=== PATIENT | male | born 1955 | race Caucasian/White ===

== ENCOUNTER → 2021-02-25 09:48 | Outpatient (BNVA) | payer MEDICARE, SELFPAY | PROVIDERS: Family Provider Physician Assistant Medical; PCP Nurse Practitioner Family; Visit Provider Internal Medicine Cardiovascular Disease | DX: I50.32 Chronic diastolic (congestive) heart failure (principal); E78.00 Pure hypercholesterolemia, unspecified | CPT/HCPCS: 80048 ==

== ENCOUNTER 2021-04-05 13:58 | Outpatient (CLI) | payer MEDICARE, SELFPAY ==
--- NOTE | 2021-04-05 14:15 | USCV_ITS ---
Ryan Nicholas Age: 65 Gender: M : 1955 Exam Date: 04/05/2021 14:19 Ordering Phys: Marcela Whitmore Technologist: MARGARET BARLOW [place] [facility] [place]: CHEST PAIN BP: 116 / 69 HR: 56 Rhythm: Sinus Technical Quality: Adequate MEASUREMENTS (Male / Female) Normal Values 2D ECHO LV Diastolic Diameter PLAX 4.3 cm 4.2 - 5.9 / 3.9 - 5.3 cm LV Systolic Diameter PLAX 2.7 cm LV Chamber Size 3.5 cm IVS Diastolic Thickness 2.0 cm 0.6 - 1.0 / 0.6 - 0.9 cm IVS Systolic Thickness 2.3 cm LVPW Diastolic Thickness 2.4 cm 0.6 - 1.0 / 0.6 - 0.9 cm LVPW Systolic Thickness 2.3 cm RV Chamber Size 3.9 cm LVOT Diameter 2.1 cm LV Ejection Fraction 2D Teich 68.4 % LV Ejection Fraction MOD 2C 77.5 % LV Ejection Fraction 2C AL 79.3 % LA Diameter 4.1 cm LA Width 3.3 cm LA Height 5.1 cm RA Width 4.3 cm RA Height 4.8 cm Aorta at Sinotubular Diameter 3.3 cm M-MODE LV Diastolic Diameter MM 6.5 cm 4.2 - 5.9 / 3.9 - 5.3 cm LV Systolic Diameter MM 4.6 cm LV Ejection Fraction MM Teich 54.9 % IVS Diastolic Thickness MM 1.5 cm 0.6 - 1.0 / 0.6 - 0.9 cm IVS Systolic Thickness MM 1.8 cm LVPW Diastolic Thickness MM 1.8 cm 0.6 - 1.0 / 0.6 - 0.9 cm LVPW Systolic Thickness MM 1.9 cm RV Diastolic Diameter MM 0.9 cm Aortic Annulus Diameter 4.7 cm LA Ao Ratio MM 1.0 MV E Point Septal Separation 0.9 cm DOPPLER AV Peak Velocity 100.0 cm/s LVOT Peak Velocity 60.0 cm/s AV Area Cont Eq vti 1.8 cm squared AV Area Cont Eq pk 2.1 cm squared MV Area PHT 3.6 cm squared Mitral E to A Ratio 1.0 MV E' Velocity 51.5 cm/s Mitral E to MV E' Ratio 13.3 Mitral E to LV E' Lateral Ratio 9.3 Mitral E to LV E' Septal Ratio 23.8 TR Peak Velocity 153.7 cm/s TR Peak Gradient 9.4 mmHg TR Mean Velocity 105.6 cm/s TR Mean Gradient 5.2 mmHg TR Velocity Time Integral 42.8 cm TV Peak E Velocity 57.0 cm/s Right Atrial Pressure 3.0 mmHg Pulmonary Artery Systolic Pressu 12.4 mmHg PV Peak Velocity 56.0 cm/s RV Acceleration Time 0.1 s RV Ejection Time 0.3 s RV AcT/ET 0.2 FINDINGS Left Ventricle Normal left ventricular cavity size. Normal left ventricular systolic function. Left ventricular ejection fraction is estimated at 55 %. Grade I/IV diastolic dysfunction (abnormal relaxation filling pattern), normal to mildly elevated filling pressures. Right Ventricle The right ventricle is normal in size and function. Right Atrium The right atrium is normal in size. Left Atrium The left atrium is normal in size. Mitral Valve Structurally normal mitral valve without significant stenosis or prolapse. There is no mitral regurgitation. Aortic Valve Structurally normal aortic valve without significant sclerosis or stenosis. There is no aortic regurgitation. Tricuspid Valve Structurally normal tricuspid valve without significant stenosis or regurgitation. Pulmonary artery systolic pressure is normal. Pulmonic Valve Structurally normal pulmonic valve without significant stenosis. There is no pulmonic regurgitation. Pericardium Normal pericardium without effusion. Aorta Normal ascending aorta dimension. CONCLUSIONS 1-Normal left ventricular cavity size. Normal left ventricular systolic function. Left ventricular ejection fraction is estimated at 55 %. Grade I/IV diastolic dysfunction (abnormal relaxation filling pattern), normal to mildly elevated filling pressures. 2-There is no pericardial effusion. 3-No significant valve abnormalities. 4-Pulmonary artery systolic pressure is within normal limits. 5-Due to poor quality study cannot compared with prior exam. Aarti Faria MD (Electronically Signed) Final Date: 05 April 2021 21:03 S
== END 2021-04-05 13:59 | disposition home or self-care (01) ==
LOC: RAD 14:04
PROVIDERS: PCP Nurse Practitioner Family; Visit Provider Nurse Practitioner Family
DX: I50.32 Chronic diastolic (congestive) heart failure (principal); R07.9 Chest pain, unspecified
CPT/HCPCS: 80048; 83880; 93306

== ENCOUNTER → 2022-11-23 12:39 | Outpatient (BNVA) | payer MEDICARE, SELFPAY | PROVIDERS: Visit Provider Internal Medicine | DX: I48.91 Unspecified atrial fibrillation (principal); I50.32 Chronic diastolic (congestive) heart failure; I25.10 Atherosclerotic heart disease of native coronary artery without angina pectoris; E78.00 Pure hypercholesterolemia, unspecified; Z87.891 Personal history of nicotine dependence; Z95.1 Presence of aortocoronary bypass graft | CPT/HCPCS: 99213 ==

== ENCOUNTER → 2023-08-23 12:27 | Outpatient (BNVA) | payer MEDICARE, SELFPAY | PROVIDERS: Visit Provider Internal Medicine | DX: I48.91 Unspecified atrial fibrillation (principal); I25.10 Atherosclerotic heart disease of native coronary artery without angina pectoris; I50.32 Chronic diastolic (congestive) heart failure; E78.00 Pure hypercholesterolemia, unspecified; Z87.891 Personal history of nicotine dependence; Z95.1 Presence of aortocoronary bypass graft | CPT/HCPCS: 99214 ==

== ENCOUNTER → 2023-11-28 08:51 | Outpatient (BNVA) | payer MEDICARE, SELFPAY | PROVIDERS: Visit Provider Nurse Practitioner Family | DX: L57.0 Actinic keratosis (principal); L40.0 Psoriasis vulgaris; D22.5 Melanocytic nevi of trunk; L81.4 Other melanin hyperpigmentation; L82.1 Other seborrheic keratosis | CPT/HCPCS: 17000; 99204 ==

== ENCOUNTER 2023-12-04 07:38 | Outpatient (CLI) | payer MEDICARE, SELFPAY ==
--- NOTE | 2023-12-04 08:00 | USCV_ITS ---
Ryan Nicholas Age: 68 Gender: M : 1955 Exam Date: 12/04/2023 08:05 Ordering Phys: Natasha Nesbitt Technologist: Jennifer Sin Exam Location: [facility] – [place] Indication: CABGX2 , SOB and EDEMA BP: 104 / 68 HR: 0 Rhythm: Other Technical Quality: Adequate MEASUREMENTS (Male / Female) Normal Values 2D ECHO LV Diastolic Diameter PLAX 5.9 cm 4.2 - 5.9 / 3.9 - 5.3 cm IVS Diastolic Thickness 1.3 cm 0.6 - 1.0 / 0.6 - 0.9 cm IVS Systolic Thickness 1.5 cm LVPW Diastolic Thickness 1.7 cm 0.6 - 1.0 / 0.6 - 0.9 cm LVPW Systolic Thickness 2.1 cm LVOT Diameter 1.2 cm LV Ejection Fraction 2D Teich 21.1 % LV Ejection Fraction MOD 2C 23.1 % Aorta at Sinotubular Diameter 3.3 cm IVC Diameter 2.6 cm DOPPLER AV Peak Velocity 131.0 cm/s LVOT Peak Velocity 100.0 cm/s AV Area Cont Eq vti 0.9 cm squared AV Area Cont Eq pk 0.8 cm squared MV Area PHT 2.3 cm squared Mitral E to A Ratio 9.7 TV Peak Velocity 229.7 cm/s TR Peak Velocity 233.5 cm/s TR Peak Gradient 21.8 mmHg Right Atrial Pressure 5.0 mmHg Pulmonary Artery Systolic Pressu 26.8 mmHg PV Peak Velocity 61.0 cm/s FINDINGS Left Ventricle Technically limited quality echocardiogram. Left ventricle is dilated. Grossly LV systolic function is moderate to severely reduced. Regional wall motion abnormalities cannot accurately be assessed because of limited visualization. Right Ventricle Normla in size. Moderately hypokinetic Right Atrium Normal in size Left Atrium Normal in size Mitral Valve Mild mitral annular calcification seen. Mild mitral regurgitation. Aortic Valve Aortic valve is thickened.No significant stenosis or regurgitation Tricuspid Valve Mild tricuspid regurgitation. Pulmonary artery systolic pressure is normal. Pulmonic Valve Not well visualized Pericardium Normal Aorta Normal in size IVC Appears to be dilated. CONCLUSIONS Technically limited quality echocardiogram because of poor ultrasonic windows. LV is dilated. Grossly LV systolic function is moderate to severely reduced. Wall motion abnormalities cannot accurately be assessed because of limited visualization. Mild mitral regurgitation Mild tricuspid regurgitation IVC appears dilated. Accurate comparison with prior echo is not possible because of limited visualization on current study. Will recommend assessing LV systolic function with limited echocardiogram with contrast. Blake Landin MD (Electronically Signed) Final Date: 09 December 2023 12:02 S
== END 2023-12-04 07:39 | disposition home or self-care (01) ==
LOC: RAD 07:39
PROVIDERS: Visit Provider Registered Nurse
DX: R63.5 Abnormal weight gain (principal); I25.10 Atherosclerotic heart disease of native coronary artery without angina pectoris; Z95.1 Presence of aortocoronary bypass graft; I08.1 Rheumatic disorders of both mitral and tricuspid valves; R79.89 Other specified abnormal findings of blood chemistry; R60.0 Localized edema; R06.02 Shortness of breath
CPT/HCPCS: 93306

== ENCOUNTER 2024-01-02 07:21 | Outpatient (CLI) | payer MEDICARE, SELFPAY ==
--- NOTE | 2024-01-02 07:27 | USCV_ITS ---
Ryan Nicholas Age: 68 Gender: M : 1955 Exam Date: 01/02/2024 07:43 Ordering Phys: Natasha Nesbitt Technologist: FRANCISCO Exam Location: [facility] [place] Indication: LIMITED ONLY FOR EF BP: 104 / 68 HR: 75 Rhythm: Sinus Technical Quality: Adequate MEASUREMENTS (Male / Female) Normal Values 2D ECHO LV Diastolic Diameter PLAX 5.4 cm 4.2 - 5.9 / 3.9 - 5.3 cm IVS Diastolic Thickness 1.0 cm 0.6 - 1.0 / 0.6 - 0.9 cm IVS Systolic Thickness 1.6 cm LVPW Diastolic Thickness 1.6 cm 0.6 - 1.0 / 0.6 - 0.9 cm LVPW Systolic Thickness 2.6 cm LVOT Diameter 2.0 cm LV Ejection Fraction 2D Teich 41.1 % LV Ejection Fraction MOD 2C 29.8 % LV Ejection Fraction 2C AL 30.3 % LA Diameter 5.3 cm RA Systolic Volume 4C AL 43.0 ml RA Systolic Volume 4C MOD 40.6 ml Aorta at Sinotubular Diameter 2.7 cm M-MODE LA Ao Ratio MM 1.1 AV Cusp Separation MM 1.7 cm FINDINGS Left Ventricle Right Ventricle Right Atrium Left Atrium Mitral Valve Aortic Valve Tricuspid Valve Pulmonic Valve Pericardium Aorta IVC CONCLUSIONS This is a limited echocardiogram performed to assess LV systolic function. LV systolic function is severely reduced with EF of 25-30% Severe global hypokinesis. Blake Landin MD (Electronically Signed) Final Date: 14 January 2024 11:45 S
[2024-01-02] MEDS: perflutren protein-a microsphr 0.22 mg/mL SDV 3 mL IV (08:18)
== END 2024-01-02 07:22 | disposition home or self-care (01) ==
LOC: RAD 07:22
PROVIDERS: Visit Provider Registered Nurse
DX: R93.1 Abnormal findings on diagnostic imaging of heart and coronary circulation (principal); I51.89 Other ill-defined heart diseases; R06.02 Shortness of breath; Z95.1 Presence of aortocoronary bypass graft; R79.89 Other specified abnormal findings of blood chemistry; I25.10 Atherosclerotic heart disease of native coronary artery without angina pectoris
CPT/HCPCS: C8924; Q9956

== ENCOUNTER → 2024-02-26 10:18 | Outpatient (BNVA) | payer MEDICARE, SELFPAY | PROVIDERS: Visit Provider Nurse Practitioner Family | DX: L40.0 Psoriasis vulgaris (principal); D22.39 Melanocytic nevi of other parts of face; I87.2 Venous insufficiency (chronic) (peripheral); L57.0 Actinic keratosis; D22.5 Melanocytic nevi of trunk; R60.1 Generalized edema | CPT/HCPCS: 17000; 99214 ==

== ENCOUNTER → 2024-05-22 14:43 | Outpatient (BNVA) | payer MEDICARE, SELFPAY | PROVIDERS: PCP Registered Nurse; Visit Provider Internal Medicine | DX: I48.91 Unspecified atrial fibrillation (principal); I25.10 Atherosclerotic heart disease of native coronary artery without angina pectoris; Z95.1 Presence of aortocoronary bypass graft; I50.32 Chronic diastolic (congestive) heart failure; E78.00 Pure hypercholesterolemia, unspecified; Z87.891 Personal history of nicotine dependence | CPT/HCPCS: 99214 ==

== ENCOUNTER → 2024-05-28 15:07 | Outpatient (BNVA) | payer MEDICARE, SELFPAY | PROVIDERS: PCP Registered Nurse; Visit Provider Nurse Practitioner Family | DX: L40.0 Psoriasis vulgaris (principal); Z79.899 Other long term (current) drug therapy; I87.2 Venous insufficiency (chronic) (peripheral) | CPT/HCPCS: 99214 ==

== ENCOUNTER → 2024-09-30 08:47 | Outpatient (BNVA) | payer MEDICARE, SELFPAY | PROVIDERS: PCP Registered Nurse; Visit Provider Nurse Practitioner Family | DX: L40.0 Psoriasis vulgaris (principal); Z79.899 Other long term (current) drug therapy; I87.2 Venous insufficiency (chronic) (peripheral); D69.2 Other nonthrombocytopenic purpura; L57.0 Actinic keratosis | CPT/HCPCS: 17000; 99214 ==

== ENCOUNTER 2025-04-15 14:57 | Outpatient (CLI) | payer MEDICARE, SELFPAY ==
--- NOTE | 2025-04-15 15:10 | XRR_ITS ---
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 TECHNIQUE: Imaging protocol: Radiologic exam of the left fingers. Views: Minimum 2 views. COMPARISON: No relevant prior studies available. FINDINGS: Bones/joints: No acute fracture or dislocation. Soft tissues: Overlying mild soft tissue swelling and irregularity of the nail bed. Correlate with physical examination. XR/XR finger LT min 2V [id number] IMPRESSION: As above
== END 2025-04-15 14:58 | disposition home or self-care (01) ==
LOC: RAD 15:00
PROVIDERS: PCP Registered Nurse; Visit Provider Nurse Practitioner Family
DX: S67.02XA Crushing injury of left thumb, initial encounter (principal); S60.012A Contusion of left thumb without damage to nail, initial encounter; X58.XXXA Exposure to other specified factors, initial encounter; I89.0 Lymphedema, not elsewhere classified; L98.491 Non-pressure chronic ulcer of skin of other sites limited to breakdown of skin; L40.0 Psoriasis vulgaris; Z79.899 Other long term (current) drug therapy
CPT/HCPCS: 10140; 73140; 99214

== ENCOUNTER 2025-10-10 13:49 | Inpatient (IN) | payer MEDICARE, SELFPAY ==
--- OUTSIDE RECORDS SUMMARY | 2025-10-08 08:20 | XMS_ITS | Encounter Summary ---
Author Organization [facility] Address [address] [place] [address] Care Team Providers Care Transportation Solutions Manager Name Role Phone Bernardino Gonzalez MD Primary Care Provider [phone] Reason for Visit * Reason Comments Hospital Follow Up [facility] 10/08 Encounter Details Date Type Department Care Team (Late st Contact Info) Description 10/08/2025 8:20 AM CHEMICAL MIXER Video Visit [facility] [address] [address] Natasha Nesbitt, [facility] [address] [address] Acute congestive heart failure, unspecified heart failure type (CMS/HCC) (Primary Dx); Generalized muscle weakness; Acquired hypothyroidism; Atherosclerosis of coronary artery of [place] heart without angina pectoris, unspecified vessel or lesion type; H/O cardiac pacemaker Social History Tobacco Use Types Packs/Day Years Used Date Smoking Tobacco: Former Cigarettes 0 Q uit: 05/12/2013 Passive Smoke Exposure: Past Smokeless Tobacco: Never Alcohol Use Standard Drinks/Week Comments Yes 0.8 (1 standard drink = 0.6 oz p ure alcohol) Sex and Gender Information Value Date Recorded Sex Assigned at Not on file Legal Sex Male 5:46 AM CHEMICAL MIXER Gender Identity Not on file Sexual Orientation Not on file documented as of this encounter Last Filed Vital Signs Vital Sign Reading Time Taken Comments Blood Pressure - - Pulse - - Temperature - - Respiratory Rate - - Oxygen Saturation - - Inhaled Oxygen Concentration - - Weight 113.4 kg (250 lb) 10/08/2025 8:12 AM CHEMICAL MIXER Height 177.8 cm (5' 10 ) 10/08/2025 8:12 AM CHEMICAL MIXER Body Mass Index 35.87 10/08/2025 8:12 AM CHEMICAL MIXER documented in this encounter Patient Instructions * Attachments The following attachments cannot be sent through Care Everywhere. * Cardiac Rehabilitation (Austrian) documented in this encounter Progress Notes * Natasha Nesbitt, SENIOR ELECTRICAL ESTIMATOR - 10/08/2025 8:18 AM CST Chief Complaint Patient presents with Hospital Follow Up [facility] 10/08 Patient's identity confirmed yes Patient gave verbal consent to have these services billed to their insurance and expressed understanding that co-insurance and deductible may apply: yes Patient was located At home This encounter was completed via two-way synchronous audio and video communication. History of Present Illness The patient is a 70-year-old male who presents for a hospital follow-up. He was discharged from [facility] on 10/04/2025. He was hospitalized due to decreased kidney function and fluid overload. During his hospital stay, he received IV Lasix and was prescribed bumetanide 1 mg twice daily. His medication regimen was adjusted, with the addition of bumetanide and the discontinuation of Farxiga and lisinopril. He continues to take Eliquis and his thyroid medication. He does not recall any requirement for repeat labs at t he time of discharge. He underwent lab tests prior to his appointment on 09/30/2025 but is uncertain if TSH was included in these tests. He reports persistent difficulty in walking, feeling weak and unsteady, but notes a slight improvement in his mobility. He does not have home health services and expresses no interest in physical therapy. He is unable to get outside to the car. He is not consuming protein shakes but has been incorpo rating peanut butter into his diet. Diet: Incorporating peanut butter into his diet Review of Systems Constitutional: Negative. HENT: Negative. Eyes: Negative. Respiratory: Negative. Cardiovascular: Negative. Gastrointestinal: Negative. Genitourinary: Negative. Musculoskeletal: Negative. Skin: Negative. Neurological: Positive for weakness. Endo/Heme/Allergies: Negative. Psychiatric/Behavioral: Negative. Ht 5' 10 (1.778 m) Wt 113.4 kg (250 lb) BMI 35.87 kg/m?? Physical Exam General: Patient appears weak and unsteady. Physical Exam Vitals and nursing note reviewed. Results Labs - TSH: 06/2025, High ICD-10-CM ICD-9-CM 1. Acute congestive heart failure, unspecified heart failure type (CMS/HCC) I50.9 428.0 bumetanide (BUMEX) 1 mg tablet 2. Generalized muscle weakness M62.81 728.87 COMPREHENSIVE METABOLIC PANEL 3. Acquired hypothyroidism E03.9 244.9 TSH 4. Atherosclerosis of coronary artery of [place] heart without angina pectoris, unspecified vessel or lesion type I25.10 414.01 Eliquis 5 mg tablet 5. H/O cardiac pacemaker Z95.0 V12.50 Eliquis 5 mg tablet V45.01 Assessment & Plan 1. Post-hospitalization follow-up: - He was discharged from [facility] on 10/04/2025 after being treated for decreased kidney functionand fluid overload with IV Lasix. - He was started on bumetanide 1 mg twice daily and continues to take Eliquis and his thyroid medication. He was advised to discontinue Farxiga and lisinopril. His blood pressure has remained normal since stopping lisinopril. - A repeat TSH test will be ordered as his previous TSH levels were elevated in 06/2025. An attemptwill be made to add this test to the blood work already conducted by his previous provider on 09/30/2025. If this is not feasible, he will be contacted to schedule a separate appointment for the TSH test. - Refills for Eliquis and bumetanide have been sent to the pharmacy. 2. Generalized weakness: - He reports significant weakness and unsteadiness, making it difficult to walk or get outside to the car. - He is not currently receiving home health services and has declined physical therapy. - He is advised to increase his protein intake through shakes, nuts, beef jerky, beef sticks, chicken, turkey, or red meat. Foods rich in iron are also recommended. - If he continues to experience weakness, he should inform us so that a referral for home health ruperto-person physical therapy can be arranged. 3. CHF- controlled without signs of fluid overload since DC. Continue current medication management. Elevate lower extremities and wear compression hose 4. Hypothyroidism-Continue current dose of medication. Labs drawn in clinic for monitoring of chronic disease progression 5. CAD- currently stable and asymptomatic. Continue current medical therapy without changes. No reports of angina currently. Natasha LUIS This note was automatically generated by a Generative AI technology ([facility]), reviewed, edited, and finalized by KLILIAN Christensen. The author of this note, patient (or authorized wholesale representative), and all other persons present consent to the audio recording of this visit for charting documentation purposes. ICAL MIXER documented in this encounter Plan of Treatment Upcoming Encounters Date Type Department Care Team (Late st Contact Info) Description 12/01/2025 10:00 AM CHEMICAL MIXER Office Visit [address] [address] Natasha Nesbitt FNP [address] [address] 02/20/2026 9:00 AM CDT Office Visit [address] [address] Bernardino Gonzalez MD [address] [address] Scheduled Orders Name Type Priority Associated Diagnoses Orde r Schedule TSH [facility] Add-on (Auto-Fax) Acquired hypothyroidism Expected: 10/08/2025, Expires: 10/08/2026 COMPREHENSIVE METABOLIC PANEL [facility] Add-on (Auto-Fax) Generalized muscle weakness Expected: 10/08/2025, Expires: 10/08/2026 documented as of this encounter Goals Goal Patient Goal Type Associated Problems Recent Progress Patient-Stated? Author Heart Failure Goal Care Plan Heart Failure Problem No Mari Anand RN Heart Failure Goal Care Plan Heart Failure Problem No Yrn Haas Heart Failure Goal Care Plan Heart Failure Problem No Yrn Haas Heart Failure Goal Care Plan Heart Failure Problem No Yrn Haas Heart Failure Goal Care Plan Heart Failure Problem No Yrn Haas documented as of this encounter Visit Diagnoses Diagnosis Acute congestive heart failure, unspecified heart failure type (CMS/HCC)- Primary Generalized muscle weakness Muscle weakness (generalized) Acquired hypothyroidism Unspecified hypothyroidism Atherosclerosis of coronary artery of [place] heart without angina pectoris, unspecified vessel or lesion type H/O cardiac pacemaker Personal history of unspecified circulatory disease documented in this encounter Additional Health Concerns Active Problems Noted Date Diagnosed Date Heart Failure Problem 09/04/2024 Heart Failure Problem 09/09/2024 Heart Failure Problem 09/09/2024 Heart Failure Problem 09/09/2024 Heart Failure Problem 09/09/2024 documented as of this encounter Care Teams Transportation Solutions Manager Relationship Specialty Start Date End Date Bernardino Gonzalez MD [address] [address] PCP - General Family Practice 11/09/23 documented as of this encounter
[2025-10-10] VITALS (11 sets, daily range): BP systolic 86–151; BP diastolic 49–59; PULSE 60–72; RESP 21–30; TEMP 34–36.6; O2SAT 73–98
--- OUTSIDE RECORDS SUMMARY | 2025-10-10 13:56 | XMS_ITS | Clinical Summary ---
Author Organization [facility] Address [address] [place] [address] Care Team Providers Care Psychiatric Aide Instructor Name Role Phone Unavailable Primary Care Provider Unavailabl e Social History Tobacco Use Types Packs/Day Years Used Date Smoking Tobacco: Never Assessed Sex and Gender Information Value Date Recorded Sex Assigned at Not on file Legal Sex Male 9:46 AM CDT Gender Identity Not on file Sexual Orientation Not on file Plan of Treatment Not on file
--- OUTSIDE RECORDS SUMMARY | 2025-10-10 13:56 | XMS_ITS | Clinical Summary ---
Author Organization [facility] Address [address] [place] [address] Care Team Providers Care Tip Inserter Name Role Phone Thao Burt MD Primary Care Provider [phone] Allergies No known active allergies Medications metoprolol tartrate (LOPRESSOR) 25 mg tablet Take 25 mg by mouth 2 times daily. Active ezetimibe (ZETIA) 10 mg tablet Take 10 mg by mouth daily. Active aspirin (SUNNY CHEWABLE) 81 mg Tablet, Chewable Take 81 mg by mouth daily. Active amiodarone (CORDARONE) 200 mg tablet Take 200 mg by mouth daily. Active spironolactone (ALDACTONE) 25 mg tablet Take 25 mg by mouth daily. 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 Psoriasis Family History Medical History Relation Name Comments Lung Cancer Father Unknown Maternal Grandfather Unknown Maternal Grandmother Unknown Mother Unknown Paternal Grandfather Unknown Paternal Grandmother Breast Cancer Neg Hx Colon Cancer Neg Hx Relation Name Status Comments Father Maternal Grandfather Maternal Grandmother Mother Paternal Grandfather Paternal Grandmother Social History Tobacco Use Types Packs/Day Years Used Date Smoking Tobacco: Former Cigarettes 41 0 05/12/1972 - 05/12/2013 Smokeless Tobacco: Never Tobacco Cessation:Ready to Q uit: No; Counseling Given: Yes Alcohol Use Standard Drinks/Week Comments Yes 0.8 (1 standard drink = 0.6 oz p ure alcohol) year Sex and Gender Information Value Date Recorded Sex Assigned at Not on file Legal Sex Male 9:32 AM CDT Gender Identity Not on file Sexual Orientation Not on file Occupation Industry Job Start Date Job End Date Not on file Not on file Not on file Not on file Last Filed Vital Signs Vital Sign Reading Time Taken Comments Blood Pressure 109/69 10/25/2017 3:31 PM [employer] Pulse 76 10/25/2017 3:31 PM [employer] Temperature 37.1 C (98.8 F) 10/25/2017 3:31 PM [employer] Respiratory Rate 32 10/25/2017 3:31 PM [employer] Oxygen Saturation 93% 10/25/2017 3:31 PM [employer] Inhaled Oxygen Concentration - - Weight 115.5 kg (254 lb 9.6 oz) 10/25/2017 3:31 PM [employer] Height 177.8 cm (5' 10 ) 10/25/2017 3:31 PM [employer] Body Mass Index 36.53 10/25/2017 3:31 PM [employer] Plan of Treatment Health Maintenance Due Date Last Done Comments DTAP/TDAP/TD VACCINES (1 - Tdap) 1974 COLORECTAL SCREENING 2000 Colorectal Cancer Screening 2000 FIT-DNA Q 3 years 2000 FIT/FOBT Q 1 year 2000 Flex Sig/CT Colonography Q 5 years 2000 PNEUMOCOCCAL VACCINE 50+ YEA RS (1 of 1 - PCV) 2005 RSV VACCINE (60+ or ) (1 - Risk 50-74 years 1-dose series) 2005 ZOSTER VACCINE (1 of 2) 2005 Pre-Diabetes and Diabetes Screening 09/30/2017 09/30/2014, 08/08/2014, 06/19/2014 INFLUENZA VACCINE (#1) 2025 Procedures Procedure Name Priority Date/Time Associated Diagnosis Comments HEMOGLOBIN A1C Routine 09/30/2014 8:17 AM [employer] Psoriasis from Last 3 Months or Most Recently Relevant to Health Maintenance Results * HEMOGLOBIN A1C (09/30/2014 8:17 AM [employer]) HEMOGLOBIN A1C 5.9 4.5 - 6.2 % 09/30/2014 8:43 AM [employer] [facility] EST. AVG GLUCOSE, A1C 123 mg/dL 09/30/2014 8:43 AM [employer] [facility] Blood Venipuncture - L ab Collect / Unknown 09/30/2014 8:17 AM [employer] 09/30/2014 8:17 AM [employer] us Alex Hogue DO CHEMISTRY ORDERABLES Final Res ult [facility] CLIA # [id number] [address] [address] from Last 3 Months or Most Recently Relevant to Health Maintenance Care Teams Tip Inserter Relationship Specialty Start Date End Date Thao Burt MD [address] [phone] PCP - General Family Practice 06/23/15
--- OUTSIDE RECORDS SUMMARY | 2025-10-10 13:56 | XMS_ITS | Encounter Summary ---
Author Organization [facility] Address [address] [place] [address] Care Team Providers Care Hydro Station Operator Name Role Phone Bernardino Gonzalez MD Primary Care Provider [phone] Reason for Visit * Reason Comments Question Encounter Details Date Type Department Care Team (Late st Contact Info) Description 10/07/2025 Telephone [facility] [address] [address] [facility] [address] [phone] Question Social History Tobacco Use Types Packs/Day Years Used Date Smoking Tobacco: Former Cigarettes 0 Q uit: 05/12/2013 Passive Smoke Exposure: Past Smokeless Tobacco: Never Alcohol Use Standard Drinks/Week Comments Yes 0.8 (1 standard drink = 0.6 oz p ure alcohol) Sex and Gender Information Value Date Recorded Sex Assigned at Not on file Legal Sex Male 5:46 AM PLASTERER STUCCO Gender Identity Not on file Sexual Orientation Not on file documented as of this encounter Miscellaneous Notes * Telephone Encounter - Krys Bryan - 10/07/2025 4:45 PM CST 10/07/2025 4:45 PM Spoke with patient. Appointment successfully scheduled/rescheduled. Voiced understanding. Krys TERER STUCCO * Telephone Encounter - Ana Nathan - 10/07/2025 12:40 PM PLASTERER STUCCO Copied from [facility] #[id number]. Topic: Established Patient Care >> Oct 07, 2025 12:37 PM Ana Andrews wrote: Is the patient established with a [facility] provider? Yes, select appropriate option in Discharge Facility SmartList Caller Name: Ryan Nicholas Callback Number: [phone] Call Notes: [facility], d/c 10.04.25 Pt states he has a hard time getting around and is unable to do a VV. States he will be able to do a Telephone visit if a provider would be willing to do that. Please, advise. Patient is High Risk Where was the patient discharged from? Hospital Is there availability to schedule the patient within 5 calendar days of discharge? Patient declinedto schedule TERER STUCCO documented in this encounter Plan of Treatment Upcoming Encounters Date Type Department Care Team (Late st Contact Info) Description 12/01/2025 10:00 AM PLASTERER STUCCO Office Visit [address] [phone] Natasha Nesbitt FNP [address] [address] 02/20/2026 9:00 AM CDT Office Visit [address] [phone] Bernardino Gonzalez MD [address] [phone] documented as of this encounter Goals Goal [...] documented as of this encounter Visit Diagnoses Not on filedocumented in this encounter Additional Health Concerns Active Problems Noted Date Diagnosed Date Heart Failure Problem 09/04/2024 Heart Failure Problem 09/09/2024 Heart Failure Problem 09/09/2024 Heart Failure Problem 09/09/2024 Heart Failure Problem 09/09/2024 documented as of this encounter Care Teams Hydro Station Operator Relationship Specialty Start Date End Date Bernardino Gonzalez MD [address] [phone] PCP - General Family Practice 11/09/23 documented as of this encounter
--- OUTSIDE RECORDS SUMMARY | 2025-10-10 13:56 | XMS_ITS | Clinical Summary ---
Author Organization [facility] Address [address] Antoinen: Epic Prelude ADT MARYJO ROSAS [address] Care Team Providers Care Realtime Court Reporter Name Role Phone Bernardino Gonzalez MD Primary Care Provider [phone] Allergies Active Allergy Reactions Criticality Noted Date Comments Sacubitril-Valsartan Diarrhea Low 09/05/2025 Medications mupirocin (BACTROBAN) 2 % Ointment APPLY OINTMENT TOPICALLY TO OPEN ULCER ON RIGHT LEG TWICE DAILY UNTIL HEALED. 04/21/20 25 Active levothyroxine 50 mcg tabletIndications: Acquired hypothyroidism Take 1 Tablet (50 mcg) by mouth daily. 90 Tablet 1 07/09/20 25 Active Eliquis 5 mg tabletIndications: Atherosclerosis of coronary artery of standing rock heart without angina pectoris, unspecified vessel or lesion type,H/O cardiac pacemaker Take 1 Tablet (5 mg) by mouth 2 times daily with meals. 180 Tablet 3 10/08/20 25 Active bumetanide (BUMEX) 1 mg tabletIndications: Acute congestive heart failure, unspecified heart failure type (CMS/HCC) Take 1 Tablet (1 mg) by mouth 2 times daily. 180 Tablet 2 10/08/20 25 Active Eliquis 5 mg tabletIndications: Atherosclerosis of coronary artery of standing rock heart without angina pectoris, unspecified vessel or lesion type,H/O cardiac pacemaker TAKE 1 TABLET BY MOUTH TWICE DAILY WITH MEALS 180 Tablet 08/11/20 25 025 Discontin ued(Reord er) bumetanide (BUMEX) 1 mg tablet Take 1 mg by mouth daily. 10/04/20 25 025 Discontin ued(Reord er) Active Problems Patient Care Coordination No te Formatting of this note migh t be different from the original. PCP Reselection in Progress as of 01-05-22 (insurance mismatch) Problem Noted Date Diagnosed Date Acute congestive heart failure 10/08/2025 Acquired hypothyroidism 05/23/2025 Morbid obesity with body mass index (BMI) of 40. 0 or higher 04/09/2024 HFrEF (heart failure with reduced ejection fract ion) 04/09/2024 Stage 3b chronic kidney disease 04/09/2024 Atherosclerosis of coronary artery 04/09/2024 Statin myopathy 02/08/2024 S/P CABG x 2 09/30/2013 Psoriasis Resolved Problems Problem Noted Date Diagnosed Date Resolved Date Myocardial infarct 09/30/2013 Encounters Date Type Department Care Team Description 10/08/2025 8:20 AM GRAINING PRESS OPERATOR Video Visit [address] [phone] Natasha Nesbitt FNP Acute congestive heart failure, unspecified heart failure type (CMS/HCC) (Primary Dx); Generalized muscle weakness; Acquired hypothyroidism; Atherosclerosis of coronary artery of standing rock heart without angina pectoris, unspecified vessel or lesion type; H/O cardiac pacemaker 10/07/[address] [address] Natasha Nesbitt FNP Question 09/08/2025 Results Follow-Up [address] [phone] Natasha Nesbitt FNP XR CHEST PA AND LATERAL 2 VW 09/05/2025 10:30 AM GRAINING PRESS OPERATOR - 09/05/2025 11:59 PM GRAINING PRESS OPERATOR Hospital Encounter [facility] [address] [address] Natasha Nesbitt FNP Discharge Disposition: Home or Self Care 09/05/2025 10:00 AM GRAINING PRESS OPERATOR Office Visit [address] [phone] Natasha Nesbitt FNP HFrEF (heart failure with reduced ejection fraction) ([facility]) (Primary Dx); H/O cardiac pacemaker; Atherosclerosis of coronary artery of standing rock heart without angina pectoris, unspecified vessel or lesion type; Shortness of breath; Stage 3b chronic kidney disease ([facility]) 08/13/2025 External Device Data STL ABSTRACTION Provider, Abstract 08/12/2025 External Device Data STL ABSTRACTION Provider, Abstract 08/12/2025 External Device Data STL ABSTRACTION Provider, Abstract 08/09/[address] [phone] Natasha Nesbitt FNP Atherosclerosis of coronary artery of standing rock heart without angina pectoris, unspecified vessel or lesion type; H/O cardiac pacemaker 08/08/2025 11:19 AM CDT - 08/08/2025 11:59 PM CDT Hospital Encounter [facility] [place] [address] [facility] [address] [place] [phone] Naomie Solis MD Mtn, External Provider Natasha Nesbitt FNP Discharge Disposition: Home or Self Care 08/06/[address] [phone] Bernardino Gonzalez MD letter regarding appointment from Last 3 Months Family History Medical History Relation Name Comments [...] Passive Smoke Exposure: Past Smokeless Tobacco: Never Tobacco Cessation:Counseling Given: No Alcohol Use Standard Drinks/Week Comments Yes 0.8 (1 standard drink = 0.6 oz p ure alcohol) Sex and Gender Information Value Date Recorded Sex Assigned at Not on file Legal Sex Male 5:46 AM GRAINING PRESS OPERATOR Gender Identity Not on file Sexual Orientation Not on file Last Filed Vital Signs Vital Sign Reading Time Taken Comments Blood Pressure 123/81 09/05/2025 9:56 AM GRAINING PRESS OPERATOR Pulse 67 09/05/2025 9:56 AM GRAINING PRESS OPERATOR Temperature 36.6 C (97.8 F) 09/05/2025 9:56 AM GRAINING PRESS OPERATOR Respiratory Rate 16 09/05/2025 9:56 AM GRAINING PRESS OPERATOR Oxygen Saturation 91% 09/05/2025 9:56 AM GRAINING PRESS OPERATOR Inhaled Oxygen Concentration - - Weight 113.4 kg (250 lb) 10/08/2025 8:12 AM GRAINING PRESS OPERATOR Height 177.8 cm (5' 10 ) 10/08/2025 8:12 AM GRAINING PRESS OPERATOR Body Mass Index 35.87 10/08/2025 8:12 AM GRAINING PRESS OPERATOR Plan of Treatment Upcoming Encounters Date Type Department Care Team (Late st Contact Info) Description 12/01/2025 10:00 AM GRAINING PRESS OPERATOR Office Visit [facility] [address] [phone] Natasha Nesbitt FNP [address] [phone] 02/20/2026 9:00 AM CDT Office Visit [facility] [address] [phone] Bernardino Gonzalez MD [address] [phone] Health Maintenance Due Date Last Done Comments Pre-Diabetes and Diabetes Screening 1955 DTAP/TDAP/TD VACCINES (1 - Tdap) 1974 COLORECTAL CANCER SCREENING (AUTO ORDER) 2000 COLORECTAL SCREENING 2000 Flex Sig/CT Colonography Q 5 years 2000 PNEUMOCOCCAL VACCINE 50+ YEA RS (1 of 1 - PCV) 2005 RSV VACCINE (60+ or ) (1 - Risk 50-74 years 1-dose series) 2005 ZOSTER VACCINE (1 of 2) 2005 Abdominal Aortic Aneurysm (A AA) Screening 2020 FIT/FOBT Q 1 YEAR (AUTO ORDER) 07/07/2023 07/07/2022 FIT/FOBT Q 1 year 07/07/2023 07/07/2022 INFLUENZA VACCINE (#1) 2025 11/09/2023 COVID-19 Vaccine (2 6 season) 2025 08/09/2022, 09/20/2021, 02/24/2021, Additional history exists Colorectal Cancer Screening 10/10/2026 FIT-DNA Q 3 years 10/10/2026 10/10/2023 FIT/ DNA Q 3 YEARS (AUTO ORDER) 10/10/2026 , 10/10/2023 Colorectal Cancer Screening (AUTO ORDER) 10/10/2028 FLEX SIG/CT COLONOGRAPHY Q 5 YEARS (AUTO ORDER) 10/10/2028 10/10/2023, 10/10/2023 [place] ([place]) Preventative Visit/Annual Wellness Visit Completed 02/14/2025, 02/08/2024, 06/12/2023 Goals Goal Patient Goal Type Associated Problems [...] Plan Heart Failure Problem No Yrn Haas Procedures Procedure Name Priority Date/Time Associated Diagnosis Comments XR CHEST PA AND LATERAL 2 VW Routine 09/05/2025 10:40 AM GRAINING PRESS OPERATOR HFrEF (heart failure with reduced ejection fraction) ([facility]) Shortness of breath REFERENCE LAB PROCESSING FEE Routine 08/08/2025 11:33 AM CDT Atherosclerosis of coronary artery COLON CANCER SCREEN, STOOL DNA Routine 10/10/2023 5:00 PM GRAINING PRESS OPERATOR Encounter for colorectal cancer screening OCCULT BLOOD IMMUNOASSAY, COLORECTAL SCREEN Routine 07/07/2022 from Last 3 Months or Most Recently Relevant to Health Maintenance Results * XR CHEST PA AND LATERAL 2 VW (09/05/2025 10:40 AM GRAINING PRESS OPERATOR) Anatomical Region Laterality Modality Chest Computed Radiogr aphy 09/05/2025 10:4 0 AM GRAINING PRESS OPERATOR Impressions 09/08/2025 6:35 AM GRAINING PRESS OPERATOR Impression: Cardiomegaly with pulmonary vascular congestion, interstitial edema and small bilateral pleural effusions, right greater than left. Sternotomy wires and left chest dual-chamber pacemaker. No pneumothorax. Narrative 09/08/2025 6:35 AM GRAINING PRESS OPERATOR Exam: XR CHEST PA AND LATERAL 2 VW Date/Time of Exam: 09/05/2025 10:40 AM Reason For Exam: See Diagnosis. Diagnosis: HFrEF (heart failure with reduced ejection fraction) (CMS/HCC); Shortness of breath. Comparison: November 09, 2023. Procedure Note Juan Alberto Christine MD - 09/08/2025 Exam: XR CHEST PA AND LATERAL 2 VW Date/Time of Exam: 09/05/2025 10:40 AM Reason For Exam: See Diagnosis. Diagnosis: HFrEF (heart failure with reduced ejection fraction) (CMS/HCC); Shortness of breath. Comparison: November 09, 2023. Impression: Cardiomegaly with pulmonary vascular congestion, interstitial edema and small bilateral pleural effusions, right greater than left. Sternotomy wires and left chest dual-chamber pacemaker. No pneumothorax. Natasha Nesbitt WAFER FABRICATION TECHNICIAN DIAGNOSTIC IMAGING ORDER MAY Final Result * REFERENCE LAB PROCESSING FEE (08/08/2025 11:33 AM CDT) REFERENCE LAB SENDOUT Sent to Ref Lab 08/08/2025 1:00 PM CDT [facility] Other, specify BLOOD SPECIMEN / Unknown Collection / Unknown 08/08/2025 11:33 AM CDT 08/08/2025 11:33 AM CDT us External Provider Mtnv CHEMISTRY ORDERABLES Sirisha l Result [facility] CLIA # [id number] [address] [place] [id number] * COLON CANCER SCREEN, STOOL DNA (10/10/2023 5:00 PM GRAINING PRESS OPERATOR) COLOGUARD RESULT Negative Negative [employer] Comment: NEGATIVE TEST RESULT. A negative Cologuard result indicates a low likelihood that a colorectal cancer (CRC) or advanced adenoma (adenomatous polyps with more advanced pre-malignant features) is present. The chance that a person with a negative Cologuard test has a colorectal cancer is less than 1 in 1500 (negative predictive value >99.9%) or has an advanced adenoma is less than 5.3% (negative predictive value 94.7%). These data are based on a prospective cross-sectional study of 10,000 individuals at average risk for colorectal cancer who were screened with both Cologuard and colonoscopy. (Reagan Villalobos. et al, N Engl J Med 2014;370(14):0003-2305) The normal value (reference range) for this assay is negative. COLOGUARD RE-SCREENING RECOMMENDATION: Periodic colorectal cancer screening is an important part of preventive healthcare for asymptomatic individuals at average risk for colorectal cancer. Following a negative Cologuard result, the [place] [employer] and U.S. Multi-Society Task Force screening guidelines recommend a Cologuard re-screening interval of 3 years. References: [place] [employer] Guideline for Colorectal Cancer Screening: https://www.cancer.org/cancer/nkvbc-gfrjhz-urkorm/rokwrlmmk-ppzpbbhap-ytnzhfu/ac s-rec ommendations.html.; Judah YOUNG, Shara GIPSON, Dung BelcherK, Colorectal Cancer Screening: Recommendations for Physicians and Patients from the U.S. Multi-Society Task Force on Colorectal Cancer Screening , Am J Gastroenterology 2017; 112:7651-8702. TEST DESCRIPTION: Composite algorithmic analysis of stool DNA-biomarkers with hemoglobin immunoassay. Quantitative values of individual biomarkers are not reportable and are not associated with individual biomarker result reference ranges. Cologuard is intended for colorectal cancer screening of adults of either sex, 45 years or older, who are at average-risk for colorectal cancer (CRC). Cologuard has been approved for use by the U.S. FDA. The performance of Cologuard was established in a cross sectional study of average-risk adults aged 50-84. Cologuard performance in patients ages 45 to 49 years was estimated by sub-group analysis of near-age groups. Colonoscopies performed for a positive result may find as the most clinically significant lesion: colorectal cancer [4.0%], advanced adenoma (including sessile serrated polyps greater than or equal to 1cm diameter) [20%] or non- advanced adenoma [31%]; or no colorectal neoplasia [45%]. These estimates are derived from a prospective cross-sectional screening study of 10,000 individuals at average risk for colorectal cancer who were screened with both Cologuard and colonoscopy. (Reagan Villalobos. et al, N Engl J Med 2014;370(14):4995-6212.) Cologuard may produce a false negative or false positive result (no colorectal cancer or precancerous polyp present at colonoscopy follow up). A negative Cologuard test result does not guarantee the absence of CRC or advanced adenoma (pre-cancer). The current Cologuard screening interval is every 3 years. ([employer] [employer] and U.S. Multi-Society Task Force). Cologuard performance data in a 10,000 patient pivotal study using colonoscopy as the reference method can be accessed at the following location: www.[employer]/results. Additional description of the Cologuard test process, warnings and precautions can be found at www.[employer].com. Stool STOOL SPECIMEN / Unknown 10/10/2023 5:00 PM GRAINING PRESS OPERATOR 10/12/2023 2:39 PM GRAINING PRESS OPERATOR Whit DAILY BODY FLUIDS AND STOOLS Edited Re fer - Final [employer] CLIA # [id number] [address] [place] [address] * OCCULT BLOOD IMMUNOASSAY, COLORECTAL SCREEN (07/07/2022) Stool STOOL SPECIMEN / Unknown us Abstract Provider BODY FLUIDS AND STOOLS Final R esult from Last 3 Months or Most Recently Relevant to Health Maintenance Additional Health Concerns Active Problems Noted Date Diagnosed Date Heart Failure Problem 09/04/2024 Heart Failure Problem 09/09/2024 Heart Failure Problem 09/09/2024 Heart Failure Problem 09/09/2024 Heart Failure Problem 09/09/2024 Insurance [facility] MEDICARE HMO Care Teams Realtime Court Reporter Relationship Specialty Start Date End Date Bernardino Gonzalez MD [address] [phone] PCP - General Family Practice 11/09/23
--- OUTSIDE RECORDS SUMMARY | 2025-10-10 13:56 | XMS_ITS | Encounter Summary ---
Author Organization [facility] Address [address] [place] [address] Care Team Providers Care Digital Publishing Specialist Name Role Phone Bernardino Gonzalez MD Primary Care Provider [phone] Encounter Details Date Type Department Care Team (Late Contact Info) Description 11/09/2023 Lab Requisition [facility] [place] [address] [address] Natasha Nesbitt FNP [address] [phone] Abnormal weight gain Social History Tobacco Use Types Packs/Day Years Used Date Smoking Tobacco: Former Cigarettes 0 Q uit: 05/12/2013 Passive Smoke Exposure: Past Smokeless Tobacco: Never Alcohol Use Standard Drinks/Week Comments Yes 0.8 (1 standard drink = 0.6 oz p ure alcohol) Sex and Gender Information Value Date Recorded Sex Assigned at Not on file Legal Sex Male 5:46 AM BAR ATTENDANT Gender Identity Not on file Sexual Orientation Not on file documented as of this encounter Plan of Treatment Upcoming Encounters Date Type Department Care Team (Late st Contact Info) Description 12/01/2025 10:00 AM BAR ATTENDANT Office Visit [address] [phone] Natasha Nesbitt FNP [address] [phone] 02/20/2026 9:00 AM CDT Office Visit [address] [place] [phone] Bernardino Gonzalez MD [address] [phone] documented as of this encounter Procedures Procedure Name Priority Date/Time Associated Diagnosis Comments DIFFERENTIAL, MANUAL Stat 11/09/2023 11:59 AM BAR ATTENDANT Abnormal weight gain CBC WITH DIFFERENTIAL Stat 11/09/2023 11:59 AM BAR ATTENDANT Abnormal weight gain BRAIN NATRIURETIC PEPTIDE, BNP OR PROBNP Stat 11/09/2023 11:59 AM BAR ATTENDANT Abnormal weight gain COMPREHENSIVE METABOLIC PANEL Stat 11/09/2023 11:59 AM BAR ATTENDANT Abnormal weight gain documented in this encounter Results * MANUAL DIFFERENTIAL (11/09/2023 11:59 AM BAR ATTENDANT) PLATELET EST. Adequate 11/09/2023 12:16 PM BAR ATTENDANT [facility] ANISOCYTOSIS 1+ /hpf 11/09/2023 12:16 PM BAR ATTENDANT [facility] MACROCYTES 1+ /hpf 11/09/2023 12:[address] [facility] CLUMPED PLATELETS Present 024 12:[address] [facility] Comment:Rare platelet clumpi ng observed. Blood Collection / Unknown 11/09/2023 11:59 AM BAR ATTENDANT 11/09/2023 11:59 AM BAR ATTENDANT Narrative [facility] - 11/09/2023 12:16 PM BAR ATTENDANT Smear reviewed. Findings consistent with automated results. Natasha THRASHERP HEMATOLOGY ORDERABLES CO M Final Result [facility] CLIA # [id number] [address] [address] * (ABNORMAL) BRAIN NATRIURETIC PEPTIDE, BNP OR PROBNP (11/09/2023 11:59 AM BAR ATTENDANT) PROBNP, N TERMINAL 1,722(H) 0 - 125 pg/mL 11/09/2023 12:[address] [facility] Blood Collection / Unknown 11/09/2023 11:59 AM BAR ATTENDANT 11/09/2023 11:59 AM BAR ATTENDANT Natasha Nesbitt DIVING SUPERVISOR CHEMISTRY ORDERABLES Fin al Result [facility] CLIA # [id number] [address] [place] [address] * (ABNORMAL) COMPREHENSIVE METABOLIC PANEL (11/09/2023 11:59 AM BAR ATTENDANT) Pathologist [facility] SODIUM 139 136 - 145 mmol/L 11/09/2023 12:[address] [facility] POTASSIUM 4.7 3.5 - 5.1 mmol/L 11/09/2023 12:[address] [facility] CHLORIDE 101 98 - 107 mmol/L 11/09/2023 12:[address] [facility] CO2 26 22 - 29 mmol/L 11/09/2023 12:[address] [facility] CALCIUM 9.3 8.8 - 10.2 mg/dL 11/09/2023 12:[address] [facility] BUN 33(H) 8 - 23 mg/dL 11/09/2023 12:[address] [facility] CREATININE 1.89(H) 0.67 - 1.17 mg/dL 11/09/2023 12:[address] [facility] GLUCOSE 93 74 - 99 mg/dL 11/09/2023 12:[address] [facility] TOTAL PROTEIN 7.2 6.6 - 8.7 g/dL 11/09/2023 12:[address] [facility] ALBUMIN 3.8 3.5 - 5.2 g/dL 11/09/2023 12:[address] [facility] BILIRUBIN TOTAL 0.8 <=1.2 mg/dL 11/09/2023 12:[address] [facility] ALKALINE PHOSPHATASE 55 40 - 129 U/L 11/09/2023 12:[address] [facility] AST 36 10 - 50 U/L 11/09/2023 12:[address] [facility] ALT 23 10 - 50 U/L 11/09/2023 12:[address] [facility] GFR 38(L) >=60 mL/min/1.7 3 sq meter 11/09/2023 12:[address] [facility] Comment:eGFR calculated with 2020 CKD-EPI equation. Vegetarian diet, extremely high or low muscle mass, and may affect results. Cystatin C with Glomerular Filtration Rate is a suitable alternative for these patients. ANION GAP 12 12 - 20 mmol/L 11/09/2023 12:[address] [facility] Blood Collection / Unknown 11/09/2023 11:59 AM BAR ATTENDANT 11/09/2023 11:59 AM BAR ATTENDANT Natasha Nesbitt [facility] CHEMISTRY ORDERABLES Fin al Result [facility] CLIA # [id number] [address] [place] [address] * (ABNORMAL) CBC WITH DIFFERENTIAL (11/09/2023 11:59 AM BAR ATTENDANT) WBC 7.2 4.2 - 9.1 K/uL 11/09/2023 12:[address] [facility] RBC 4.81 4.63 - 6.08 M/uL 11/09/2023 12:[address] [facility] HEMOGLOBIN 16.3 13.7 - 17.5 g/dL 11/09/2023 12:[address] [facility] HEMATOCRIT 47.9 40.1 - 51.0 % 11/09/2023 12:[address] [facility] MCV 99.6(H) 79.0 - 92.2 fL 11/09/2023 12:[address] [facility] MCH 33.9(H) 25.7 - 32.2 pg 11/09/2023 12:[address] [facility] MCHC 34.0 32.3 - 36.5 g/dL 11/09/2023 12:[address] [facility] RDW 15.7(H) 11.0 - 14.5 % 11/09/2023 12:[address] [facility] RDW-STDEV 57.8(H) 36.9 - 56.9 fL 11/09/2023 12:[address] [facility] PLATELETS 123(L) 130 - 400 K/uL 11/09/2023 12:[address] [facility] MPV 11.1 10.0 - 14.8 fL 11/09/2023 12:[address] [facility] NEUTROPHILS 67 34 - 68 % 11/09/2023 12:[address] [facility] LYMPHOCYTES 18(L) 22 - 53 % 11/09/2023 12:[address] [facility] MONOCYTES 11 5 - 12 % 11/09/2023 12:[address] [facility] EOSINOPHILS 3 1 - 7 % 11/09/2023 12:[address] [facility] BASOPHILS 1 0 - 1 % 11/09/2023 12:[address] [facility] IMMATURE GRANULOCYTES 1 % 11/09/2023 12:[address] [facility] NEUTROPHIL ABSOLUTE 4.79 1.78 - 5.38 K/uL 11/09/2023 12:[address] [facility] LYMPHOCYTE ABSOLUTE 1.30 1.20 - 3.40 K/uL 11/09/2023 12:[address] [facility] MONOCYTE ABSOLUTE 0.82 0.30 - 0.82 K/uL 11/09/2023 12:[address] [facility] EOSINOPHIL ABSOLUTE 0.18 0.04 - 0.54 K/uL 11/09/2023 12:[address] [facility] BASOPHILS ABSOLUTE 0.06 0.01 - 0.08 K/uL 11/09/2023 12:[address] [facility] IMMATURE GRANULOCYTES ABSOLUTE 0.04 K/uL 11/09/2023 12:[address] [facility] Blood Collection / Unknown 11/09/2023 11:59 AM BAR ATTENDANT 11/09/2023 11:59 AM BAR ATTENDANT Natasha Nesbitt DIVING SUPERVISOR HEMATOLOGY ORDERABLES Fi nal Result [facility] CLIA # [id number] [address] [id number] documented in this encounter Visit Diagnoses Diagnosis Abnormal weight gain documented in this encounter Care Teams Digital Publishing Specialist Relationship Specialty Start Date End Date Bernardino Gonzalez MD [address] [phone] PCP - General Family Practice 11/09/23 documented as of this encounter
--- NOTE | 2025-10-10 13:59 | ECG_ITS ---
[facility] Test Date: 2025-10-10 Pat Name: Ryan Nicholas Department: Room: Gender: Male File Clerk Data Entry: : 1955 Requested By: Tobi Ferrer Order Number: [id number] Junior MD: KATHERINE WOOD Measurements Intervals [place] Rate: 60 P: 0 [place]: 0 QRS: 33 QRSD: 161 T: 234 QT: 444 QTc: 446 Interpretive Statements ELECTRONIC VENTRICULAR PACEMAKER ABNORMAL RHYTHM ECG No previous ECG available for comparison Electronically Signed On 10-12-2025 23:04:20 WAITER/WAITRESS BAR by KATHERINE WOOD [id number]
--- NOTE | 2025-10-10 13:59 | XRR_ITS ---
PROCEDURE INFORMATION: Exam: XR Chest Exam date and time: 10/10/2025 2:04 PM Age: 70 years old Clinical indication: Pain; Chest pressure; Additional info: SOB TECHNIQUE: Imaging protocol: Radiologic exam of the chest. Views: 1 view. COMPARISON: No relevant prior studies available. FINDINGS: Tubes, catheters and devices: Cardiac pacemaker/ICD is in place. Lungs: Bilateral airspace, ground-glass and nodular opacities involving the mid to lower lung zones. Suboptimal pulmonary expansion with associated accentuation of bronchovascular markings. Mild pulmonary vascular congestion. Pleural spaces: Small right pleural effusion. Minimal left CP angle blunting. Heart/Mediastinum: Increased cardiac silhouette with component of accentuation by technique. Bones/joints: Prior median sternotomy. Dextrocurvature of the thoracic spine with degenerative change. XR/XR chest 1V portable [id number] IMPRESSION: Extensive bilateral pulmonary abnormalities including areas of nodularity, airspace and ground-glass opacity. Small right and minimal left pleural reaction. Increased cardiac silhouette. Possible contributing factors to above appearance include infectious/inflammatory pathology, fluid overload, metastatic disease and other possibilities. In absence of prior exams, CT could be performed further assessment if clinically warranted.
--- NOTE | 2025-10-10 14:21 | W.ED.SOB ---
HPI - SOB/Dyspnea General: Chief Complaint: Fall Stated Complaint: FALL/ WEAKNESS Time Seen by Provider: 10/10/25 13:50 Source: patient and EMS Mode of arrival: EMS Limitations: no limitations History of Present Illness: HPI Narrative: 70-year-old male has a history of A-fib along with heart failure states that he slipped in his bathtub last night was not able to get out. He denies any injuries from the slip denies hitting anything. He states he has been having some increasing shortness of breath along with cough he is requiring 4 L oxygen here. He denies any chest pain denies any fevers. Related Data Home Medications ?Medication ?Instructions ?Recorded ?Confirmed risankizumab-rzaa 150 mg/mL 150 mg SUBCUT Q3M 05/22/24 10/10/25 subcutaneous pen injector (Skyrizi) apixaban 5 mg tablet (Eliquis) 5 mg PO BID 10/10/25 10/10/25 bumetanide 1 mg tablet 1 mg PO BID 10/10/25 10/10/25 furosemide 80 mg tablet See Rx Instructions .Route .COMPLEX 10/10/25 10/10/25 levothyroxine 50 mcg tablet 50 mcg PO DAILY 10/10/25 10/10/25 Allergies Allergy/AdvReac Type Severity Reaction Status Date / Time No Known Allergies Allergy Verified 05/22/24 15:03 Review of Systems Resp: Reports: dyspnea PFS ED PFSH: Medical History (Updated 10/10/25 @ 16:38 by Tobi Ferrer MD) CAD (coronary artery disease) Atrial fibrillation Diastolic heart failure Hypercholesterolemia Surgical History S/P CABG (coronary artery bypass graft) Family History Other CAD (coronary artery disease) Social History Smoking and tobacco/nicotine status: former use of tobacco/nicotine Physical Exam Const: COMMON NORMALS: patient oriented x3 GENERAL APPEARANCE: ill appearing HENMT: COMMON NORMALS: normocephalic and atraumatic HEAD & SCALP: normocephalic and atraumatic Neck/C-Spine: COMMON NORMALS: full ROM and supple Chest: COMMONS NORMALS: normal inspection of the chest Resp: COMMON NORMALS: No retractions and No use of accessory muscles EFFORT & INSPECTION: Yes respiratory distress AUSCULTATION: rales Cardio: COMMON NORMALS: regular rate, regular rhythm and No murmurs present (Cardio) RATE: regular rate RHYTHM: regular rhythm GI: COMMON NORMALS: Normal to inspection, nondistended, normoactive bowel sounds present, Soft to palpation, non-tender and no masses PALPATION: Yes Soft to palpation Extremity: COMMON NORMALS: normal to inspection and full ROM Neuro: COMMON NORMALS: patient oriented x3, moves all extremities and no focal motor deficits Psych: COMMON NORMALS: mental status grossly normal, Normal thought process present and cooperative THOUGHT PROCESS: Normal thought process present Skin: COMMON NORMALS: no rashes or lesions noted and no wounds GENERAL SKIN EXAM: no rashes or lesions noted Course Vital Signs: Vital signs: Vital Signs Temperature 93.2 F L 10/10/25 13:51 Pulse Rate 62 10/10/25 15:30 Respiratory Rate 24 H 10/10/25 15:30 Blood Pressure 101/49 10/10/25 15:30 Pulse Oximetry 97 10/10/25 15:30 Oxygen Delivery Me thod Heated High Flow 10/10/25 14:46 Oxygen Flow Rate 50 10/10/25 14:47 Fraction of Inspir ed Oxygen 55 10/10/25 14:47 MDM - SOB/Dyspnea Medical Decision Making Patient presents here after slipping in the bathtub not able to get out he is was extremely hypoxic here and did have to place him on high flow his x-ray here shows extensive bilateral abnormalities likely pneumonia does have a history of congestive heart failure could be some fluid overload as well. He did have a white count along with elevated lactate. I did not give him a full sepsis bolus as he has severe heart failure and recently admitted admitted due to heart failure. Did give him IV antibiotics he does have chronic kidney disease. His vitals here have been stable otherwise his oxygen status. I spoke to the hospitalist and will admit at this time to cardiac stepdown. critical care time 50 minutes The high probability of a clinically significant, sudden or life threatening deterioration of the patient's respsystem(s) required my full and direct attention, intervention and personal management. The critical care time is as shown. This time is in addition to time spent performing any reported procedures but includes the following: [x] Data and vital sign review and interpretation [x] Patient assessment, examination and intervention [x] Documentation [x] Medication orders and management EKG interpreted by me at 1359 paced rhythm heart rate [address] elevation QRS 161 QTc 445 Second EKG interpreted by me at 1456 paced rhythm heart rate [address] elevation QRS 113 QTc 213 Medical Records I reviewed the patient's medical records. Lab Data I reviewed the patient's lab results. 10/10/25 15:17 10/10/25 15:17 Labs/Radiology: Radiology Impressions Chest X-Ray 10/10/25 13:59 IMPRESSION: Extensive bilateral pulmonary abnormalities including areas of nodularity, airspace and ground-glass opacity. Small right and minimal left pleural reaction. Increased cardiac silhouette. Possible contributing factors to above appearance include infectious/inflammatory pathology, fluid overload, metastatic disease and other possibilities. In absence of prior exams, CT could be performed further assessment if clinically warranted. Laboratory Results WBC 14.55 10^3/uL (3.29-11.43) H 10/10/25 15:17 RBC 3.79 10^6/uL (3.85-5.65) L 10/10/25 15:17 Hgb 11.80 g/dL (11.27-16.99) 10/10/25 15:17 Hct 34.8 % (37-53) L 10/10/25 15:17 MCV 91.8 fl (82-101) 10/10/25 15:17 MCH 31.1 pg (27-33) 10/10/25 15:17 MCHC 33.9 g/dL (30-55) 10/10/25 15:17 RDW 21.7 % (12.1-15.1) H 10/10/25 15:17 Plt Count 122 10^3/cmm (157-399) L 10/10/25 15:17 MPV 10.8 fL (7.4-10.4) H 10/10/25 15:17 Neut % (Auto) 85.9 % 10/10/25 15:17 Lymph % (Auto) 4.8 % 10/10/25 15:17 [place] % (Auto) 7.7 % 10/10/25 15:17 Eos % (Auto) 0.0 % 10/10/25 15:17 Baso % (Auto) 0.2 % 10/10/25 15:17 Neut # (Auto) 12.49 10^3/uL (1.8-7.7) H 10/10/25 15:17 Lymph # (Auto) 0.7 10^3/uL (0.8-4.8) L 10/10/25 15:17 [place] # (Auto) 1.1 10^3/uL (0.2-0.9) H 10/10/25 15:17 Eos # (Auto) 0.0 10^3/uL (0.0-0.8) 10/10/25 15:17 Baso # (Auto) 0.0 10^3/uL (0.0-0.1) 10/10/25 15:17 Nucleated RBC % (auto) 0 % 10/10/25 15:17 Nucleated RBCs # 0.0 /100WBC 10/10/25 15:17 PT 22.40 SECONDS (12.1-14.9) H 10/10/25 15:17 INR 1.84 (0.8-1.2) H 10/10/25 15:17 Specimen Type Arterial 10/10/25 14:10 Sample Site Radial, right 10/10/25 14:10 ABG pH 7.47 (7.35-7.45) H 10/10/25 14:10 ABG pCO2 40.9 mmHg (35-45) 10/10/25 14:10 ABG pO2 48.1 mmHg (80.0-100.0) L 10/10/25 14:10 ABG PO2/FiO2 Ratio 133 10/10/25 14:10 ABG HCO3 29.6 mmol/L (22-26) H 10/10/25 14:10 ABG Base Excess 5.3 mmol/L (-2.0-2.0) H 10/10/25 14:10 Jeevan Test Pos 10/10/25 14:10 Hematocrit 37.6 % (42-52) L 10/10/25 14:10 Hgb O2 Saturation 82.4 % (95-100) L 10/10/25 14:10 Carboxyhemoglobin 2.2 %THgb (0.4-20.1) 10/10/25 14:10 Methemoglobin 0.8 % (0.4-1.5) 10/10/25 14:10 Total Hemoglobin 12.3 g/dL (14-18) L 10/10/25 14:10 O2 Delivery Device Nc 10/10/25 14:10 O2 Liters/Min 4.0 % 10/10/25 14:10 FiO2 36.0 % 10/10/25 14:10 Assistant Professor Of Chemistry ID Monro 10/10/25 14:10 Sodium 137 mmol/L (136-145) 10/10/25 15:17 Potassium 3.9 mmol/L (3.5-5.1) 10/10/25 15:17 Chloride 88 mmol/L (98-107) L 10/10/25 15:17 Carbon Dioxide 31 mmol/L (22-29) H 10/10/25 15:17 Anion Gap 21.9 (5-19) H 10/10/25 15:17 BUN 80 mg/dL (8-23) H 10/10/25 15:17 Creatinine 3.2 mg/dL (0.7-1.2) H 10/10/25 15:17 GFR Calculation 19.3 mL/min (90-130) L 10/10/25 15:17 Glucose 140 mg/dL (65-115) H 10/10/25 15:17 Calculated Osmolality 310 mOsm/kg (285-295) H 10/10/25 15:17 Lactic Acid 6.4 mmol/L (0.5-2.2) H* 10/10/25 15:17 Calcium 9.8 mg/dL (8.5-10.5) 10/10/25 15:17 Total Bilirubin 6.1 mg/dL (0.15-1.2) H 10/10/25 15:17 AST 67 U/L (0-40) H 10/10/25 15:17 ALT 28 U/L (0-41) 10/10/25 15:17 Alkaline Phosphatase 52 U/L (40-130) 10/10/25 15:17 Creatine Kinase 589 U/L (39-308) H* 10/10/25 15:17 NT-Pro-B Natriuret Pep 66520 pg/mL (0-125) H 10/10/25 15:17 Total Protein 6.6 g/dL (6.6-8.7) 10/10/25 15:17 Albumin 3.3 g/dL (3.5-5.2) L 10/10/25 15:17 Globulin 3.3 g/dL (1.3-4.6) 10/10/25 15:17 All radiology interpretation(s) finalized by discharge Critical Care Time Critical Care Time: Critical Care Time: Yes Total Critical Care Time: 50 Attestation: The high probability of a clinically significant, sudden or life threatening deterioration of the patient's respsystem(s) required my full and direct attention, intervention and personal management. The critical care time is as shown. This time is in addition to time spent performing any reported procedures but includes the following: [x] Data and vital sign review and interpretation [x] Patient assessment, examination and intervention [x] Documentation [x] Medication orders and management Discharge Plan Discharge Patient Disposition: Admitted As Inpatient Clinical Impression: Pneumonia, Acute respiratory failure with hypoxia, Fall, Diastolic heart failure Condition: Stable Coding Level of Care Code ED Meter Reader for Grace Simmons
[2025-10-10 14:22] LABS: ABG PCO2 40.9 mmHg (35-45); ABG PH Result 7.47 (7.35-7.45); Arterial Blood Gas Hematocrit 37.6 % (42-52); Blood Gas Allen Test Pos; Blood Gas Sample Type Arterial; Carboxyhemoglobin 2.2 %THgb (0.4-20.1); HCO3 ABG 29.6 mmol/L (22-26); Methemoglobin 0.8 % (0.4-1.5); PO2 ABG 48.1 mmHg (80.0-100.0)
[2025-10-10 14:23] LABS: Blood Gas LPM 4.0 %; Blood Gas Operator Identificat MONRO; Blood Gas Sample Site Radial, right; PO2 FiO2 Ratio Arterial Blood 133
--- NOTE | 2025-10-10 14:25 | ECG_ITS ---
[facility] Test Date: 2025-10-10 Pat Name: Ryan Nicholas Department: Room: Gender: Male Sleeve Turner: : 1955 Requested By: Tobi Ferrer Order Number: [id number] Vernon MD: KATHERINE WOOD Measurements Intervals [place] Rate: 60 P: 0 [place]: 0 QRS: 31 QRSD: 113 T: 0 QT: 213 QTc: 213 Interpretive Statements ELECTRONIC VENTRICULAR PACEMAKER ABNORMAL RHYTHM ECG Compared to ECG 10/10/2025 13:59:20 No significant changes Electronically Signed On 10-12-2025 23:04:10 FULFILLMENT SPECIALIST by KATHERINE WOOD [email or web address]
[2025-10-10 15:23] LABS: Hematocrit 34.8 % (37-53); Hemoglobin 11.80 g/dL (11.27-16.99); Mean Corpuscular HGB Conc 33.9 g/dL (30-55); Mean Corpuscular Hemoglobin 31.1 pg (27-33); Mean Corpuscular Volume 91.8 fl (82-101); Nucleated Red Blood Cells % 0 %; Platelet Count 122 10^3/cmm (157-399); Red Blood Count 3.79 10^6/uL (3.85-5.65); White Blood Count 14.55 10^3/uL (3.29-11.43)
[2025-10-10] MEDS: cefTRIAXone 1,000 mg SDV 1000 MG IVP (15:30)
[2025-10-10] MEDS: methylPREDNISolone sod succ 125 mg/2 mL INJ IVP (15:30)
--- NOTE | 2025-10-10 15:30 | PC.NURSE ---
abx delayed d/t obtaining cultures and US IV access. this RN established an 18g in the right upper arm, and jana one set of cultures.
[2025-10-10 15:35] LABS: INR 1.84 (0.8-1.2); Prothrombin Time 22.40 SECONDS (12.1-14.9)
[2025-10-10 15:51] LABS: Alanine Aminotransferase 28 U/L (0-41); Albumin Level 3.3 g/dL (3.5-5.2); Alkaline Phosphatase 52 U/L (40-130); Anion Gap 21.9 (5-19); Aspartate Amino Transferase 67 U/L (0-40); Blood Urea Nitrogen 80 mg/dL (8-23); Calcium 9.8 mg/dL (8.5-10.5); Carbon Dioxide 31 mmol/L (22-29); Chloride 88 mmol/L (98-107); Globulin 3.3 g/dL (1.3-4.6); Glucose 140 mg/dL (65-115); NT Pro B Type Natriuretic Pept 10881 pg/mL (0-125); Osmolality Calculated 310 mOsm/kg (285-295); Potassium 3.9 mmol/L (3.5-5.1); Sodium 137 mmol/L (136-145); Total Protein 6.6 g/dL (6.6-8.7)
[2025-10-10 16:14] LABS: Lactic Sepsis W/Reflex 6.4 mmol/L (0.5-2.2)
--- NOTE | 2025-10-10 16:20 | PM.HP ---
Providers/Chief Complaint Admitting Physician: Diana Morel APRN, Primary Care Provider: Natasha Nesbitt Chief Complaint: FALL/ WEAKNESS History of Present Illness Ryan Nicholas is a 70 year old male with prior medical history of HTN, HLD, CAD, [place], CABG, psoriasis, lymphedema, nicotine dependence, keratosis, hypothyroidism, heart failure, and atrial fibrillation presenting with complaints of weakness.? Patient reports that he has had recent weakness, shortness of breath, and cough.? Patient has extensive history with a heart failure clinic in [facility] including pacemaker placement. He has had episodes of fluid overload requiring hospitalization, with a recent stay at [facility] where he had approximately 5 to 6 L removed. Exact dates are unknown and patient is unable to tell us exactly when. Two nights ago in the 0300 hour, patient fell in the bathtub and was too weak to get up. He was down for 2 days until his daughter did a welfare check on him and first responders found him down. EMS was called and he was transported to [facility] ED for further assessment. Of note, patient has multiple bruises all over and visible injury to his right kapoor. He endorses a decrease in mobility, difficulty walking, bilateral leg swelling, incontinence, and a wound to his coccyx. At baseline he does not wear oxygen but he is now requiring high flow at 55. Patient lives alone and has pet cats. His 2 daughters, Gilda and Marii are very concerned about his living status, as his home is not in safe condition. They advised that the house has holes in the floors and peres and has possibly been formally condemned. EMS was not able to bring shona haile into the home s/t leonel safety concerns. At discharge, family would like Case Management to help them seek safe placement. Patient is A&Ox4, of sound mind but prefers living in his current home as it has running water . Patient does not shower frequently secondary to his weakness. Infection and fall risk. He will need assistance at discharge. In the ED, BP 101/49, HR 62, RR 24, T93.2, O2 sat 97% on heated high flow.? WBC 14.55, Hgb 11.8, PLT 122.? INR 1.84.? ABG pH 7.47, pCO2 40.9, pO2 48.1, HCO3 29.6.? NA 137, CL 88. CO2 31. BUN 80, creatinine 3.2.? Glucose 140.? Lactic 6.4.? AST 67, ALT 28, ALP 52.? CK 589.? BNP 97272.? Albumin 3.3. Dark brown cloudy urine. Urinalysis pending.? CXR; Extensive bilateral pulmonary abnormalities including areas of nodularity, airspace and ground-glass opacity. Small right and minimal left pleural reaction. Increased cardiac silhouette. Possible contributing factors to above appearance include infectious/inflammatory pathology, fluid overload, metastatic disease and other possibilities. In absence of prior exams, CT could be performed further assessment if clinically warranted, see full results. Review of Systems Const: Denies: fatigue Card: Reports: lightheadedness, pre-syncope, dyspnea on exertion (improving), orthopnea and leg pain with exertion Resp: Reports: dyspnea (improving); Denies: productive cough or non-productive cough Musc: Reports: neck pain (chronic) and back pain (chronic) Neuro: Denies: headache(s) or dizziness Psych: Denies: anxiety, depression, suicidal ideation or homicidal ideation Jose Guadalupe/Lymph: Reports: easy bruising and easy bleeding Medications/Allergies Home Medications ?Medication ?Instructions ?Recorded ?Confirmed ?Last Taken ?Type risankizumab-rzaa 150 mg/mL 150 mg SUBCUT Q3M 05/22/24 10/10/25 09/29/25 History subcutaneous pen injector (Skyrizi) acetaminophen 500 mg tablet 500 mg PO Q6H PRN Fever Or Pain 10/10/25 10/10/25 10/08/25 History (Tylenol Extra Strength) apixaban 5 mg tablet (Eliquis) 5 mg PO BID 10/10/25 10/10/25 10/10/25 08:00 History bumetanide 1 mg tablet 1 mg PO BID 10/10/25 10/10/25 10/10/25 08:00 History furosemide 80 mg tablet See Rx Instructions .Route .COMPLEX 10/10/25 10/10/25 Unknown History levothyroxine 50 mcg tablet 50 mcg PO DAILY 10/10/25 10/10/25 10/10/25 08:00 History Allergies Allergy/AdvReac Type Severity Reaction Status Date / Time No Known Allergies Allergy Verified 05/22/24 15:03 PFSH Acute PFSH: Medical History CAD (coronary artery disease) Atrial fibrillation Diastolic heart failure Hypercholesterolemia Surgical History S/P CABG (coronary artery bypass graft) Family History Other CAD (coronary artery disease) Social History Smoking and tobacco/nicotine status: former use of tobacco/nicotine Vitals/I&O/Wt Last Vital Signs Temp 93.2 F L 10/10/25 13:51 Pulse 62 10/10/25 15:30 Resp 24 H 10/10/25 15:30 BP 101/49 10/10/25 15:30 Pulse Ox 97 10/10/25 15:30 O2 Del Method Heated High Flow 10/10/25 14:46 O2 Flow Rate 50 10/10/25 14:47 FiO2 55 10/10/25 14:47 10/10/25 10/10/25 10/10/25 06:59 14:59 22:59 Intake Total 400 / 400 Balance 400 / 400 Physical Exam Const: GENERAL APPEARANCE: cooperative and ill appearing HENMT: COMMON NORMALS: normocephalic Lymph: LYMPHATIC: no lymphadenopathy noted Chest: COMMONS NORMALS: normal inspection of the chest Resp: EFFORT & INSPECTION: Yes other (Increased respiratory effort) Cardio: COMMON NORMALS: regular rate GI: COMMON NORMALS: Normal to inspection, nondistended, normoactive bowel sounds present and non-tender : COMMON NORMALS: Yes no CVA tenderness Back/Pelvis: COMMON NORMALS: no CVA tenderness Extremity: GENERAL: Yes edema Psych: COMMON NORMALS: mental status grossly normal, Normal thought process present and cooperative Skin: GENERAL SKIN EXAM: dry skin, ecchymosis and scars TRAUMA: abrasion and laceration WOUNDS: Yes wounds noted Data 10/10/25 15:17 10/10/25 15:17 Micro: Microbiology 10/10/25 15:03 Blood Culture - Preliminary Blood SPECIMEN COLLECTED 10/10/25 15:17 Blood Culture - Preliminary Blood SPECIMEN COLLECTED A&P Assessment and plan 1. Acute respiratory failure with hypoxia: O2 saturation 93% on high flow, initial RR 20?26 Patient normally does not wear home oxygen but is now requiring high flow at 55% WBC 14.55, T97.8 ABG pH 7.47, pCO2 40.9, PO2 48.1, HCO3 29.6 Lactic 6.4> 4.2, monitoring COVID/flu/RSV negative CXR; Extensive bilateral pulmonary abnormalities including areas of nodularity, airspace and ground-glass opacity. Small right and minimal left pleural reaction. Increased cardiac silhouette. Possible contributing factors to above appearance include infectious/inflammatory pathology, fluid overload, metastatic disease and other possibilities. In absence of prior exams, CT could be performed further assessment if clinically warranted, see full results. Chest CT pending Pulse oximetry Supplemental O2 to keep saturations greater than 92% VBG monitoring 2. Fall, initial encounter: Denies injury or loss of consciousness Wounds of various healing stages, on this encounter patient was down for approximately 2 days Coccyx wound, wound care CK 589 Fall risk precautions PT/OT prior to discharge Assessment of home conditions with family Case management Ambulates with a walker at times Placement considerations 3. Diastolic heart failure: With CAD and HLD Recent inpatient stay at [facility] per family, 5 to 6 L of fluid off Monitoring hypotension 90s?100s systolic In the setting of elevated BNP 68037, trend Continue home Lasix, Bumex Monitor fluid status in the setting of soft blood pressures I&O Fluid restriction Follows Dr. Landin [facility] 4. Atrial fibrillation: Reports on home Eliquis Easily bruises, in setting of fall falls considerations EKG Telemetry 5. ABIGAIL (acute kidney injury): BUN 80, creatinine 3.2 GFR 19.3 Avoid nephrotoxic agents Intake and output Dark urine, urinalysis pending with reflex to culture Rocephin Floranex Urine studies 6. Wounds and injuries: Patient has keratosis and psoriasis at baseline Followed by [facility] dermatology New wounds secondary to falls and various healing stages Mepilex to coccyx Wound care 7. Hypothyroidism: Continue home levothyroxine Repeat TSH pending PDMP PDMP Reviewed: Not Reviewed Attestations Medical Necessity Statement*: Patient expected to cross over 2 midnights to manage shortness of breath, weakness, and lab abnormalities including lactic of 6.4 Diagnoses Acute respiratory failure with hypoxia J96.01 Fall, initial encounter W19.XXXA Encounter type: initial encounter Diastolic heart failure I50.30 Atrial fibrillation I48.91 ABIGAIL (acute kidney injury) N17.9 Wounds and injuries T14.90XA Hypothyroidism E03.9
[2025-10-10 16:44] LABS: Reflex Lactate Order REFLEX LACTIC ORDERD
[2025-10-10 17:36] LABS: Respiratory Syncytial Virus Ce NEGATIVE (Negative); SARS-CoV-2 PCR NEGATIVE (Negative)
[2025-10-10 20:19] LABS: Lactic Acid level (Lactate) 4.6 mmol/L (0.5-2.2)
[2025-10-10] MEDS: pantoprazole 40 mg SDV IVP (21:54)
[2025-10-10 22:11] LABS: Lactic Sepsis W/Reflex 4.2 mmol/L (0.5-2.2)
[2025-10-10 23:36] LABS: Reflex Lactate Order REFLEX LACTIC ORDERD
[2025-10-11] VITALS (14 sets, daily range): BP systolic 91–113; BP diastolic 40–63; PULSE 60–70; RESP 19–30; TEMP 36.2–36.6; O2SAT 89–97
--- NOTE | 2025-10-11 00:16 | CTR_ITS ---
PROCEDURE INFORMATION: Exam: CT Chest Without Contrast; Diagnostic Exam date and time: 10/11/2025 9:10 AM Age: 70 years old Clinical indication: Shortness of breath; Prior surgery; Surgery date: 6+ months; Surgery type: Heart, pacer; Additional info: Abnormal cxr TECHNIQUE: Imaging protocol: Diagnostic computed tomography of the chest without contrast. Radiation optimization: All CT scans at this facility use at least one of these dose optimization techniques: automated exposure control; mA and/or kV adjustment per patient size (includes targeted exams where dose is matched to clinical indication); or iterative reconstruction. COMPARISON: CR (CHEST, ) 10/10/2025 2:04 PM RADIATION DOSE METRICS: Total DLP (mGy-cm): 752.31 FINDINGS: Lungs: There is diffuse pulmonary alveolar ground-glass opacities throughout the lungs in a somewhat perihilar central distribution. Pleural spaces: There are small to moderate bilateral dependent layering pleural effusions. Heart: There is four-chamber cardiomegaly suggested by CT. Coronary arteries: There is prominent coronary artery calcification. Lymph nodes: Unremarkable. No enlarged lymph nodes. Vasculature: The thoracic aorta is normal in caliber with mild marginal calcified atherosclerotic plaque throughout the arch. The main pulmonary artery/pulmonary artery trunk measures 3.8 cm. This can be seen with pulmonary artery hypertension. Liver: Cirrhotic architectural contour of the liver. Gallbladder and biliary ducts: Cholelithiasis. Kidneys: There is a small 1 mm nonobstructing calculus at the superior pole of the left kidney. Bones/joints: Unremarkable. No acute fracture. Soft tissues: There is bilateral retroareolar gynecomastia. There is mild body wall anasarca. CT/CT chest con [id number] IMPRESSION: 1. Cardiomegaly. 2. Dilated pulmonary artery/pulmonary trunk which can be seen with pulmonary artery hypertension. 3. Small to moderate dependent bilateral pleural effusions. 4. Diffuse bilateral pulmonary ground-glass opacities in a perihilar distribution favoring severe pulmonary alveolar edema over pneumonia, though infectious process is not excluded. 5. Cirrhosis. 6. Cholelithiasis. 7. Retroareolar gynecomastia.
[2025-10-11 01:32] LABS: Lactic Acid level (Lactate) 3.0 mmol/L (0.5-2.2)
[2025-10-11 04:42] LABS: Base Excess VBG 10.3 mmol/L (-3.0-3.0); Blood Gas Allen Test Pos; Blood Gas Sample Type Arterial; HCO3 VBG 33.5 mmol/L (24-28); PCO2 VBG 38.3 mmHg (41-51); PO2 VBG 174.0 mmHg (25-40); Venous Blood Gas Hematocrit 35.2 % (42-52); pH VBG 7.55 (7.32-7.42)
[2025-10-11 04:43] LABS: Hematocrit 32.0 % (37-53); Hemoglobin 11.00 g/dL (11.27-16.99); Mean Corpuscular HGB Conc 34.4 g/dL (30-55); Mean Corpuscular Hemoglobin 31.3 pg (27-33); Mean Corpuscular Volume 90.9 fl (82-101); Nucleated Red Blood Cells % 0 %; Platelet Count 119 10^3/cmm (157-399); Red Blood Count 3.52 10^6/uL (3.85-5.65); White Blood Count 15.53 10^3/uL (3.29-11.43)
[2025-10-11 04:44] LABS: Blood Gas LPM 50.0 %; Blood Gas Operator Identificat gerca
[2025-10-11 05:00] LABS: Lactate (Lactic Acid level) 2.3 mmol/L (0.5-2.2)
[2025-10-11] MEDS: lactobacillus 1 Tablet 1 TAB PO ×2 (05:01→16:28)
[2025-10-11 05:07] LABS: Estmated Average Glucose 94; Hemoglobin A1C 4.9 % (4.0-6.0)
[2025-10-11 05:14] LABS: Anion Gap 17.6 (5-19); Calcium 9.3 mg/dL (8.5-10.5); Carbon Dioxide 32 mmol/L (22-29); Chloride 91 mmol/L (98-107); Free T4 Free Thyroxine 1.25 ng/dL (0.82-1.77); Glucose 149 mg/dL (65-115); Magnesium 2.6 mg/dL (1.7-2.3); NT Pro B Type Natriuretic Pept 15775 pg/mL (0-125); Osmolality Calculated 313 mOsm/kg (285-295); Potassium 3.6 mmol/L (3.5-5.1); Sodium 137 mmol/L (136-145); Thyroid Stimulating Hormone 1.92 uIU/mL (0.27-4.20)
--- NOTE | 2025-10-11 05:41 | PC.NURSE ---
This AM patient has scheduled both bumex and lasix. Per patient his lasix was stopped and he was started on bumex. Per Dr. Frank lópez lasix order.
[2025-10-11 05:43] LABS: Blood Urea Nitrogen 85 mg/dL (8-23)
--- NOTE | 2025-10-11 07:56 | PC.NURSE ---
2200- Patient O2 around 89-90% RT asked about breathing treatment. Per Dr. Marie can order duonebs Q4h PRN. 2300- Diana TURNING SANDER OPERATOR at bedside to discuss family concerns. 0000- Patient BP has been running low with MAP between 60-68. Dr. Marie notified, no new orders received.
[2025-10-11 08:46] LABS: Glucose Urine UA Negative (Normal); Nitrate Urine Negative (Negative); Specific Gravity, Urine 1.015 (1.005-1.030)
[2025-10-11 08:51] LABS: Add Urine Microscopic? YES
[2025-10-11 09:02] LABS: Potassium, Radom Urine 42 mmol/L
[2025-10-11 09:03] LABS: Urine Random Chloride 11 mmol/L
[2025-10-11 09:04] LABS: UA Slide Review UA Slide Review Perf
--- NOTE | 2025-10-11 09:18 | CTR_ITS ---
PROCEDURE INFORMATION: Exam: CT Abdomen And Pelvis Without Contrast Exam date and time: 10/11/2025 9:18 AM Age: 70 years old Clinical indication: Abdominal tenderness; Abdominal pain; Localized; Upper; Additional info: Gall stones TECHNIQUE: Imaging protocol: Computed tomography of the abdomen and pelvis without contrast. Radiation optimization: All CT scans at this facility use at least one of these dose optimization techniques: automated exposure control; mA and/or kV adjustment per patient size (includes targeted exams where dose is matched to clinical indication); or iterative reconstruction. COMPARISON: CT chest wo con [id number] 10/11/2025 9:10 AM RADIATION DOSE METRICS: Total DLP (mGy-cm): 1109.23 FINDINGS: Pleural spaces: There are small to moderate bilateral dependent layering pleural effusions. There is bibasilar ground-glass pulmonary opacities. Please see CT chest today. Liver: There is a cirrhotic architectural contour to the liver which is small with micronodular serosal margin. Gallbladder and biliary ducts: There is cholelithiasis with multiple dependent layering calcified gallstones. Pancreas: Subtle peripancreatic fat stranding is present. There is no pancreatic calcification or ductal dilatation. Spleen: Normal. No splenomegaly. Adrenal glands: Normal. No mass. Kidneys and ureters: There is a small 1 mm nonobstructing calculus in the superior pole left kidney better defined on CT chest today. There are 5 nonobstructing calculi within right kidney. These are present throughout the lower pole and renal pelvis with the largest calculus near the right UPJ measuring 20 mm. Again there is no resultant hydronephrosis. The ureters are normal in course and caliber to the bladder. Stomach and bowel: Unremarkable. No obstruction. No mucosal thickening. Appendix: No evidence of appendicitis. Intraperitoneal space: There is trace ascites within the paracolic gutters and upper quadrants bilaterally. Vasculature: There is moderate atherosclerotic calcification within the abdominal aorta. There is an infrarenal abdominal aortic aneurysm. Maximal diameter is 5.3 cm anterior-posterior. This tapers to a normal caliber at the bifurcation. There is moderate to severe atherosclerotic calcification within the common iliac arteries extending into the external iliac arteries. There is high-grade stenosis within the proximal 2 cm of the left common iliac artery. There is recanalization of the umbilical vein. The portal vein measures 17 mm consistent with portal venous hypertension. Lymph nodes: Unremarkable. No enlarged lymph nodes. Urinary bladder: The bladder is decompressed. Reproductive: Unremarkable as visualized. Bones/joints: Unremarkable. No acute fracture. Soft tissues: There is [id number] body wall anasarca. There is a small fat containing periumbilical hernia. CT/CT abdomen pelvis wo con [id number] IMPRESSION: 1. Small to moderate bilateral pleural effusions with bibasilar pneumonia or edema. 2. Cirrhosis. 3. Cholelithiasis. 4. Subtle peripancreatic fat stranding. Please correlate with laboratory evaluation for possible mild pancreatitis. 5. Bilateral nonobstructing nephrolithiasis. Again there is a large calculus at the right UPJ without resultant hydronephrosis. 6. Infrarenal abdominal aortic aneurysm. 7. Atherosclerotic disease. 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 8. Portal venous hypertension. 9. Trace ascites.
[2025-10-11 09:19] LABS: Urine Random Sodium > 10 mmol/L
--- NOTE | 2025-10-11 12:19 | PC.PT ---
Hold eval per nsg due to aortic aneurysm.
[2025-10-11] MEDS: FUROsemide 10 mg/mL SDV 4mL 40 MG IVP (16:29)
--- NOTE | 2025-10-11 17:22 | PM.PN ---
Subjective Subjective: Ryan Nicholas is a 70 year old male with prior medical history of HTN, HLD, CAD, [place], CABG, psoriasis, lymphedema, nicotine dependence, keratosis, hypothyroidism, heart failure, and atrial fibrillation presenting with complaints of weakness.? Patient reports that he has had recent weakness, shortness of breath, and cough.? Patient has extensive history with a heart failure clinic in [facility] including pacemaker placement. He has had episodes of fluid overload requiring hospitalization, with a recent stay at [facility] where he had approximately 5 to 6 L removed. Exact dates are unknown and patient is unable to tell us exactly when. Two nights ago in the 0300 hour, patient fell in the bathtub and was too weak to get up. He was down for 2 days until his daughter did a welfare check on him and first responders found him down. EMS was called and he was transported to [facility] ED for further assessment. Of note, patient has multiple bruises all over and visible injury to his right kapoor. He endorses a decrease in mobility, difficulty walking, bilateral leg swelling, incontinence, and a wound to his coccyx. At baseline he does not wear oxygen but he is now requiring high flow at 55. Patient lives alone and has pet cats. His 2 daughters, Gilda and Marii are very concerned about his living status, as his home is not in safe condition. They advised that the house has holes in the floors and peres and has possibly been formally condemned. EMS was not able to bring rolling gurney into the home s/t leonel safety concerns. At discharge, family would like Case Management to help them seek safe placement. Patient is A&Ox4, of sound mind but prefers living in his current home as it has running water . Patient does not shower frequently secondary to his weakness. Infection and fall risk. He will need assistance at discharge. In the ED, BP 101/49, HR 62, RR 24, T93.2, O2 sat 97% on heated high flow.? WBC 14.55, Hgb 11.8, PLT 122.? INR 1.84.? ABG pH 7.47, pCO2 40.9, pO2 48.1, HCO3 29.6.? NA 137, CL 88. CO2 31. BUN 80, creatinine 3.2.? Glucose 140.? Lactic 6.4.? AST 67, ALT 28, ALP 52.? CK 589.? BNP 60914.? Albumin 3.3. Dark brown cloudy urine. Urinalysis pending.? CXR; Extensive bilateral pulmonary abnormalities including areas of nodularity, airspace and ground-glass opacity. Small right and minimal left pleural reaction. Increased cardiac silhouette. Possible contributing factors to above appearance include infectious/inflammatory pathology, fluid overload, metastatic disease and other possibilities. In absence of prior exams, CT could be performed further assessment if clinically warranted, see full results. 10/11/25: Patient resting. Abnormal CXR head recommendation for CT for further assessment. Imaging today revealed multiple gallstones and 5.3 infrarenal abdominal aneurysm. General surgery consulted then Vascular surgery at [facility] was contacted with help of the transfer center. They advised that they do intervention on AAA at 5.5 cm and will see the patient as a consult with [facility] hospitalists as primary attending. His last vitals relayed to the outside facility; BP 110/56, HR 61, RR 22, 93% on 15 L. WBC 15.53. BUN 85, creatinine 3.5. Albumin 3.3. Lactic trending down 6.8-4 0.6-3.2. BNP [address]. Per Dr. Frazier, patient is being switched off of Lasix and will have Bumex IV 3 times daily to improve fluid status. Patient has UTI. Patient appears jaundiced. New liver panel and ammonia pending. Patient has been accepted at [facility] and is awaiting bed placement; ICU versus stepdown secondary to his multiple comorbidities. Vitals/I&O/Wt Last Vital Signs Temp 97.1 F L 10/11/25 07:39 Pulse 60 10/11/25 11:14 Resp 24 H 10/11/25 11:14 BP 91/56 10/11/25 11:05 Pulse Ox 90 10/11/25 11:14 O2 Del Method Heated High Flow 10/11/25 00:35 O2 Flow Rate 60 10/11/25 11:14 FiO2 58 10/11/25 11:14 10/10/25 10/11/25 10/11/25 22:59 06:59 14:59 Intake Total 1000 / 1400 100 / 1500 480 / 480 Output Total 300 / 300 Balance 1000 / 1400 -200 / 1200 480 / 480 Weight last 48 hrs Weight 113.398 kg Weight 110.9 kg Physical Exam Const: GENERAL APPEARANCE: cooperative and ill appearing HENMT: COMMON NORMALS: normocephalic HEAD & SCALP: normocephalic Lymph: LYMPHATIC: no lymphadenopathy noted Chest: COMMONS NORMALS: normal inspection of the chest Resp: EFFORT & INSPECTION: Yes other (Increased respiratory effort) Cardio: COMMON NORMALS: regular rate RATE: regular rate GI: COMMON NORMALS: Normal to inspection, nondistended, normoactive bowel sounds present and non-tender : COMMON NORMALS: Yes no CVA tenderness BLADDER/KIDNEY EXAM: Yes no CVA tenderness Back/Pelvis: COMMON NORMALS: no CVA tenderness Extremity: GENERAL: Yes edema Psych: COMMON NORMALS: mental status grossly normal, Normal thought process present and cooperative THOUGHT PROCESS: Normal thought process present Skin: GENERAL SKIN EXAM: dry skin, ecchymosis and scars TRAUMA: abrasion and laceration WOUNDS: Yes wounds noted Data 10/11/25 04:30 10/11/25 04:30 Micro: Microbiology 10/10/25 15:03 Blood Culture - Preliminary Blood SPECIMEN COLLECTED 10/10/25 15:17 Blood Culture - Preliminary Blood SPECIMEN COLLECTED A&P Assessment and plan 1. Acute respiratory failure with hypoxia: O2 saturation 93% on high flow, initial RR 20?26 Patient normally does not wear home oxygen but is now requiring high flow at 55% WBC 14.55, T97.8 ABG pH 7.47, pCO2 40.9, PO2 48.1, HCO3 29.6 Lactic 6.4> 4.2, monitoring COVID/flu/RSV negative CXR; Extensive bilateral pulmonary abnormalities including areas of nodularity, airspace and ground-glass opacity. Small right and minimal left pleural reaction. Increased cardiac silhouette. Possible contributing factors to above appearance include infectious/inflammatory pathology, fluid overload, metastatic disease and other possibilities. In absence of prior exams, CT could be performed further assessment if clinically warranted, see full results. Chest CT pending Pulse oximetry Supplemental O2 to keep saturations greater than 92% VBG monitoring 2. Fall, initial encounter: Denies injury or loss of consciousness Wounds of various healing stages, on this encounter patient was down for approximately 2 days Coccyx wound, wound care CK 589 Fall risk precautions PT/OT prior to discharge Assessment of home conditions with family Case management Ambulates with a walker at times Placement considerations 3. Diastolic heart failure: With CAD and HLD Recent inpatient stay at [facility] per family, 5 to 6 L of fluid off Monitoring hypotension 90s?100s systolic In the setting of elevated BNP 59789, trend Continue home Lasix, Bumex Monitor fluid status in the setting of soft blood pressures I&O Fluid restriction Follows [facility] 4. Atrial fibrillation: Reports on home Eliquis Easily bruises, in setting of fall falls considerations EKG Telemetry 5. ABIGAIL (acute kidney injury): BUN 80, creatinine 3.2 GFR 19.3 Avoid nephrotoxic agents Intake and output Dark urine, urinalysis pending with reflex to culture Rocephin Floranex Urine studies 6. Wounds and injuries: Patient has keratosis and psoriasis at baseline Followed by [facility] dermatology New wounds secondary to falls and various healing stages Mepilex to coccyx Wound care 7. Hypothyroidism: Continue home levothyroxine Repeat TSH pending PDMP PDMP Reviewed: Not Reviewed Attestations Medical Necessity Statement*: Patient expected to cross over 2 midnights to manage shortness of breath, weakness, and lab abnormalities including lactic of 6.4 Diagnoses Acute respiratory failure with hypoxia J96.01 Fall, initial encounter W19.XXXA Encounter type: initial encounter Diastolic heart failure I50.30 Atrial fibrillation I48.91 ABIGAIL (acute kidney injury) N17.9 Wounds and injuries T14.90XA Hypothyroidism E03.9
[2025-10-11 17:43] LABS: Lactic Sepsis W/Reflex 3.2 mmol/L (0.5-2.2)
[2025-10-11 17:50] LABS: NT Pro B Type Natriuretic Pept 16490 pg/mL (0-125)
[2025-10-11] MEDS: pantoprazole 40 mg SDV IVP (18:22)
[2025-10-11 19:01] LABS: Reflex Lactate Order REFLEX LACTIC ORDERD
[2025-10-11 19:41] LABS: Alanine Aminotransferase 26 U/L (0-41); Albumin Level 2.8 g/dL (3.5-5.2); Aspartate Amino Transferase 66 U/L (0-40); Globulin 3.1 g/dL (1.3-4.6); Total Protein 5.9 g/dL (6.6-8.7)
[2025-10-11 19:42] LABS: Ammonia 91 umol/L (16-60)
[2025-10-11 20:36] LABS: Alkaline Phosphatase 77 U/L (40-130)
[2025-10-11] MEDS: bumetanide 0.25 mg/mL SDV 10 mL 2 MG IVP (21:07)
[2025-10-11 21:35] LABS: Lactic Acid level (Lactate) 3.8 mmol/L (0.5-2.2)
[2025-10-12] VITALS (14 sets, daily range): BP systolic 90–107; BP diastolic 50–58; PULSE 59–90; RESP 20–31; TEMP 36.4–36.8; O2SAT 88–96
[2025-10-12 03:21] LABS: Hematocrit 29.8 % (37-53); Hemoglobin 10.10 g/dL (11.27-16.99); Mean Corpuscular HGB Conc 33.9 g/dL (30-55); Mean Corpuscular Hemoglobin 31.0 pg (27-33); Mean Corpuscular Volume 91.4 fl (82-101); Nucleated Red Blood Cells % 0.3 %; Platelet Count 122 10^3/cmm (157-399); Red Blood Count 3.26 10^6/uL (3.85-5.65); White Blood Count 17.18 10^3/uL (3.29-11.43)
[2025-10-12 03:32] LABS: INR 2.03 (0.8-1.2); Prothrombin Time 24.20 SECONDS (12.1-14.9)
[2025-10-12 03:39] LABS: Anion Gap 17.4 (5-19); Calcium 9.2 mg/dL (8.5-10.5); Carbon Dioxide 34 mmol/L (22-29); Chloride 93 mmol/L (98-107); Glucose 143 mg/dL (65-115); Magnesium 2.6 mg/dL (1.7-2.3); Osmolality Calculated 326 mOsm/kg (285-295); Potassium 3.4 mmol/L (3.5-5.1); Sodium 141 mmol/L (136-145)
[2025-10-12 04:14] LABS: Blood Urea Nitrogen 101 mg/dL (8-23)
[2025-10-12] MEDS: bumetanide 0.25 mg/mL SDV 10 mL 2 MG IVP ×3 (05:09→21:08)
[2025-10-12] MEDS: lactobacillus 1 Tablet 1 TAB PO ×2 (05:09→17:12)
--- NOTE | 2025-10-12 17:07 | P.PN_ITS ---
Subjective 2 Subjective: Ryan Nicholas is a 70 year old male with prior medical history of HTN, HLD, CAD, [place], CABG, psoriasis, lymphedema, nicotine dependence, keratosis, hypothyroidism, heart failure, and atrial fibrillation presenting with complaints of weakness.? Patient reports that he has had recent weakness, shortness of breath, and cough.? Patient has extensive history with a heart failure clinic in [facility] including pacemaker placement. He has had episodes of fluid overload requiring hospitalization, with a recent stay at [facility] where he had approximately 5 to 6 L removed. Exact dates are unknown and patient is unable to tell us exactly when. Two nights ago in the 0300 hour, patient fell in the bathtub and was too weak to get up. He was down for 2 days until his daughter did a welfare check on him and first responders found him down. EMS was called and he was transported to [facility] ED for further assessment. Of note, patient has multiple bruises all over and visible injury to his right kapoor. He endorses a decrease in mobility, difficulty walking, bilateral leg swelling, incontinence, and a wound to his coccyx. At baseline he does not wear oxygen but he is now requiring high flow at 55. Patient lives alone and has pet cats. His 2 daughters, Gilda and Marii are very concerned about his living status, as his home is not in safe condition. They advised that the house has holes in the floors and peres and has possibly been formally condemned. EMS was not able to bring rolling gurney into the home s/t leonel safety concerns. At discharge, family would like Case Management to help them seek safe placement. Patient is A&Ox4, of sound mind but prefers living in his current home as it has running water . Patient does not shower frequently secondary to his weakness. Infection and fall risk. He will need assistance at discharge. In the ED, BP 101/49, HR 62, RR 24, T93.2, O2 sat 97% on heated high flow.? WBC 14.55, Hgb 11.8, PLT 122.? INR 1.84.? ABG pH 7.47, pCO2 40.9, pO2 48.1, HCO3 29.6.? NA 137, CL 88. CO2 31. BUN 80, creatinine 3.2.? Glucose 140.? Lactic 6.4.? AST 67, ALT 28, ALP 52.? CK 589.? BNP 86191.? Albumin 3.3. Dark brown cloudy urine. Urinalysis pending.? CXR; Extensive bilateral pulmonary abnormalities including areas of nodularity, airspace and ground-glass opacity. Small right and minimal left pleural reaction. Increased cardiac silhouette. Possible contributing factors to above appearance include infectious/inflammatory pathology, fluid overload, metastatic disease and other possibilities. In absence of prior exams, CT could be performed further assessment if clinically warranted, see full results. 10/11/25: Patient resting. Abnormal CXR head recommendation for CT for further assessment. Imaging today revealed multiple gallstones and 5.3 infrarenal abdominal aneurysm. General surgery consulted then Vascular surgery at [facility] was contacted with help of the transfer center. They advised that they do intervention on AAA at 5.5 cm and will see the patient as a consult with [facility] hospitalists as primary attending. His last vitals relayed to the outside facility; BP 110/56, HR 61, RR 22, 93% on 15 L. WBC 15.53. BUN 85, creatinine 3.5. Albumin 3.3. Lactic trending down 6.8-4 0.6-3.2. BNP [address]. [address] Frazier, patient is being switched off of Lasix and will have Bumex IV 3 times daily to improve fluid status. Patient has UTI. Patient appears jaundiced. New liver panel and ammonia pending. Patient has been accepted at [facility] and is awaiting bed placement; ICU versus stepdown secondary to his multiple comorbidities. 10/12/25: Patient resting in bed. Gian heredia at bedside educated extensively on abdominal aneurysm risks, treatment, inpatient transfer to [facility] for further evaluation. They are aware that there may or may not be intervention depending on assessment at OSH. We discussed conservative treatment. We also discussed all of his other comorbidities and plans for him at discharge for safe placement. Patient has right toe injury from one of his falls but this does not involve the nailbed. At baseline he has some nail deformities. No other complaints. Patient still requiring oxygen. Transferring hopefully tomorrow. Vitals/I&O/Wt Last Vital Signs Temp 98.3 F 10/12/25 08:00 Pulse 62 10/12/25 15:15 Resp 22 H 10/12/25 15:15 BP 102/53 10/12/25 15:14 Pulse Ox 92 10/12/25 15:15 O2 Del Method Heated High Flow 10/12/25 04:00 O2 Flow Rate 40 10/12/25 15:15 FiO2 45 10/12/25 15:15 10/12/25 10/12/25 10/12/25 06:59 14:59 22:59 Intake Total 480 / 480 Output Total 200 / 500 Balance -200 / 860 480 / 480 Weight last 48 hrs Weight 113.398 kg Weight 110.9 kg Physical Exam 2 Const: GENERAL APPEARANCE: cooperative and ill appearing HENMT: COMMON NORMALS: normocephalic HEAD & SCALP: normocephalic Lymph: LYMPHATIC: no lymphadenopathy noted Chest: COMMONS NORMALS: normal inspection of the chest Resp: EFFORT & INSPECTION: Yes other (Increased respiratory effort) Cardio: COMMON NORMALS: regular rate RATE: regular rate GI: COMMON NORMALS: Normal to inspection, nondistended, normoactive bowel sounds present and non-tender : COMMON NORMALS: Yes no CVA tenderness BLADDER/KIDNEY EXAM: Yes no CVA tenderness Back/Pelvis: COMMON NORMALS: no CVA tenderness Extremity: GENERAL: Yes edema Psych: COMMON NORMALS: mental status grossly normal, Normal thought process present and cooperative THOUGHT PROCESS: Normal thought process present Skin: GENERAL SKIN EXAM: dry skin, ecchymosis and scars TRAUMA: abrasion and laceration WOUNDS: Yes wounds noted Data 10/12/25 02:58 10/12/25 02:58 Micro: Microbiology 10/11/25 08:33 Occult Blood (FIT) - Final Stool Routine Collection 10/10/25 15:03 Blood Culture - Preliminary Blood NEGATIVE TO DATE 10/10/25 15:17 Blood Culture - Preliminary Blood NEGATIVE TO DATE A&P Assessment and plan 1. Acute respiratory failure with hypoxia: O2 saturation 93% on high flow, initial RR 20?26 Patient normally does not wear home oxygen but is now requiring high flow at 55% WBC 14.55, T97.8 ABG pH 7.47, pCO2 40.9, PO2 48.1, HCO3 29.6 Lactic 6.4> 4.2, monitoring COVID/flu/RSV negative CXR; Extensive bilateral pulmonary abnormalities including areas of nodularity, airspace and ground-glass opacity. Small right and minimal left pleural reaction. Increased cardiac silhouette. Possible contributing factors to above appearance include infectious/inflammatory pathology, fluid overload, metastatic disease and other possibilities. In absence of prior exams, CT could be performed further assessment if clinically warranted, see full results. Chest CT pending Pulse oximetry Supplemental O2 to keep saturations greater than 92% VBG monitoring 2. Fall, initial encounter: Denies injury or loss of consciousness Wounds of various healing stages, on this encounter patient was down for approximately 2 days Coccyx wound, wound care CK 589 Fall risk precautions PT/OT prior to discharge Assessment of home conditions with family Case management Ambulates with a walker at times Placement considerations 3. Diastolic heart failure: With CAD and HLD Recent inpatient stay at [facility] per family, 5 to 6 L of fluid off Monitoring hypotension 90s?100s systolic In the setting of elevated BNP 06467, trend Continue home Lasix, Bumex Monitor fluid status in the setting of soft blood pressures I&O Fluid restriction Follows [facility] 4. Atrial fibrillation: Reports on home Eliquis Easily bruises, in setting of fall falls considerations EKG Telemetry 5. ABIGAIL (acute kidney injury): BUN 80 > 101, creatinine 3.2 > 3.6 GFR 19.3 > 16.2 Avoid nephrotoxic agents Intake and output Dark urine, urinalysis pending with reflex to culture Rocephin Floranex Urine studies 6. Wounds and injuries: Patient has keratosis and psoriasis at baseline Followed by [facility] dermatology New wounds secondary to falls and various healing stages Mepilex to coccyx Wound care 7. Hypothyroidism: Continue home levothyroxine Repeat TSH pending PDMP PDMP Reviewed: Not Reviewed Attestations 2 Medical Necessity Statement*: Patient expected to cross over 2 midnights to manage shortness of breath, weakness, and lab abnormalities including lactic of 6.4 Coding Level of Care Code Acute Code for Chg Fwd Diagnoses Acute respiratory failure with hypoxia J96.01 Fall, initial encounter W19.XXXA Encounter type: initial encounter Diastolic heart failure I50.30 Atrial fibrillation I48.91 ABIGAIL (acute kidney injury) N17.9 Wounds and injuries T14.90XA Hypothyroidism E03.9
[2025-10-12] MEDS: pantoprazole 40 mg SDV IVP (17:13)
--- NOTE | 2025-10-12 18:25 | PC.NURSE ---
patient had a 12 beat run of vtach (see paper chart) at approx 1820. Patient was lying in bed awake. LEO Ortiz, notified.
[2025-10-12 18:56] LABS: Base Excess VBG 9.9 mmol/L (-3.0-3.0); HCO3 VBG 35.3 mmol/L (24-28); PCO2 VBG 50.9 mmHg (41-51); PO2 VBG 44.5 mmHg (25-40); Venous Blood Gas Hematocrit 33.7 % (42-52); pH VBG 7.45 (7.32-7.42)
[2025-10-12 18:57] LABS: Blood Gas LPM 40.0 %; Blood Gas Operator Identificat MONRO; Blood Gas Sample Site Not specified; Blood Gas Sample Type Venous
[2025-10-12 19:20] LABS: Lactate (Lactic Acid level) 2.8 mmol/L (0.5-2.2)
[2025-10-13] VITALS (15 sets, daily range): BP systolic 98–112; BP diastolic 51–62; PULSE 60–79; RESP 18–34; TEMP 36.4–37.2; O2SAT 90–94
[2025-10-13 03:17] LABS: Hematocrit 30.5 % (37-53); Hemoglobin 10.30 g/dL (11.27-16.99); Mean Corpuscular HGB Conc 33.8 g/dL (30-55); Mean Corpuscular Hemoglobin 31.6 pg (27-33); Mean Corpuscular Volume 93.6 fl (82-101); Nucleated Red Blood Cells % 0.4 %; Platelet Count 93 10^3/cmm (157-399); Red Blood Count 3.26 10^6/uL (3.85-5.65); White Blood Count 14.09 10^3/uL (3.29-11.43)
[2025-10-13 03:38] LABS: Calcium 9.1 mg/dL (8.5-10.5); Carbon Dioxide 32 mmol/L (22-29); Chloride 93 mmol/L (98-107); Glucose 122 mg/dL (65-115); Magnesium 2.6 mg/dL (1.7-2.3); Osmolality Calculated 324 mOsm/kg (285-295); Sodium 139 mmol/L (136-145)
[2025-10-13 03:40] LABS: Anion Gap 18.0 (5-19); Potassium 4.0 mmol/L (3.5-5.1)
[2025-10-13 03:43] LABS: Blood Urea Nitrogen 111 mg/dL (8-23)
--- NOTE | 2025-10-13 04:39 | PC.NURSE ---
[facility] Transfer center called again leticia for an update on this patient discussed BP, labs, and current assessment. Also mentioned to caller about imaging done. Transfer center to call back with requests from their hospitalist Dr. Montalvo. Due to soft bp he requested 500 cc bolus, abx, lactic, and blood cultures to be drawn if abx are started. Dr. kelly notified. At this time due to patient coming in with SBP of 90-100 MD will hold off on fluid bolus unless patient is symptomatic, will also deferred abx request to dayshift team. MD to place orders for lactic, procal, and CRP. Transfer center updated on orders placed.
[2025-10-13 05:09] LABS: Procalcitonin 0.58 ng/mL (0-0.5)
[2025-10-13] MEDS: lactobacillus 1 Tablet 1 TAB PO ×2 (06:20→17:18)
--- NOTE | 2025-10-13 07:57 | PC.NURSE ---
0430- Dr. Marie notified regarding critical BUN of 111. No new orders received. 0627- Patient BP 96/53 and bumex [address] mg [address] with Dr[address] Marie if he still wants bumex given. Per MD hold bumex.
[2025-10-13 08:02] LABS: Lactate (Lactic Acid level) 1.9 mmol/L (0.5-2.2)
--- NOTE | 2025-10-13 11:16 | PM.PN ---
Subjective Subjective: Ryan Nicholas is a 70 year old male with prior medical history of HTN, HLD, CAD, [place], CABG, psoriasis, lymphedema, nicotine dependence, keratosis, hypothyroidism, heart failure, and atrial fibrillation presenting with complaints of weakness.? Patient reports that he has had recent weakness, shortness of breath, and cough.? Patient has extensive history with a heart failure clinic in [facility] including pacemaker placement. He has had episodes of fluid overload requiring hospitalization, with a recent stay at [facility] where he had approximately 5 to 6 L removed. Exact dates are unknown and patient is unable to tell us exactly when. Two nights ago in the 0300 hour, patient fell in the bathtub and was too weak to get up. He was down for 2 days until his daughter did a welfare check on him and first responders found him down. EMS was called and he was transported to [facility] ED for further assessment. Of note, patient has multiple bruises all over and visible injury to his right kapoor. He endorses a decrease in mobility, difficulty walking, bilateral leg swelling, incontinence, and a wound to his coccyx. At baseline he does not wear oxygen but he is now requiring high flow at 55. Patient lives alone and has pet cats. His 2 daughters, Gilda and Marii are very concerned about his living status, as his home is not in safe condition. They advised that the house has holes in the floors and peres and has possibly been formally condemned. EMS was not able to bring rolling gurney into the home s/t leonel safety concerns. At discharge, family would like Case Management to help them seek safe placement. Patient is A&Ox4, of sound mind but prefers living in his current home as it has running water . Patient does not shower frequently secondary to his weakness. Infection and fall risk. He will need assistance at discharge. In the ED, BP 101/49, HR 62, RR 24, T93.2, O2 sat 97% on heated high flow.? WBC 14.55, Hgb 11.8, PLT 122.? INR 1.84.? ABG pH 7.47, pCO2 40.9, pO2 48.1, HCO3 29.6.? NA 137, CL 88. CO2 31. BUN 80, creatinine 3.2.? Glucose 140.? Lactic 6.4.? AST 67, ALT 28, ALP 52.? CK 589.? BNP 43788.? Albumin 3.3. Dark brown cloudy urine. Urinalysis pending.? CXR; Extensive bilateral pulmonary abnormalities including areas of nodularity, airspace and ground-glass opacity. Small right and minimal left pleural reaction. Increased cardiac silhouette. Possible contributing factors to above appearance include infectious/inflammatory pathology, fluid overload, metastatic disease and other possibilities. In absence of prior exams, CT could be performed further assessment if clinically warranted, see full results. 10/11/25: Patient resting. Abnormal CXR head recommendation for CT for further assessment. Imaging today revealed multiple gallstones and 5.3 infrarenal abdominal aneurysm. General surgery consulted then Vascular surgery at [facility] was contacted with help of the transfer center. They advised that they do intervention on AAA at 5.5 cm and will see the patient as a consult with [facility] hospitalists as primary attending. His last vitals relayed to the outside facility; BP 110/56, HR 61, RR 22, 93% on 15 L. WBC 15.53. BUN 85, creatinine 3.5. Albumin 3.3. Lactic trending down 6.8-4 0.6-3.2. BNP [address]. [address] Frazier, patient is being switched off of Lasix and will have Bumex IV 3 times daily to improve fluid status. Patient has UTI. Patient appears jaundiced. New liver panel and ammonia pending. Patient has been accepted at [facility] and is awaiting bed placement; ICU versus stepdown secondary to his multiple comorbidities. 10/12/25: Patient resting in bed. Daughters at bedside educated extensively on abdominal aneurysm risks, treatment, inpatient transfer to [facility] for further evaluation. They are aware that there may or may not be intervention depending on assessment at OSH. We discussed conservative treatment. We also discussed all of his other comorbidities and plans for him at discharge for safe placement. Patient has right toe injury from one of his falls but this does not involve the nailbed. At baseline he has some nail deformities. No other complaints. Patient still requiring oxygen. Transferring hopefully tomorrow. 10/13/25: Patient is pending transfer to [facility] X 2 days. AAOX4. Educated on AAA evaluation and transfer. Stable this morning. White count trending in the correct direction. BUN increased from 101 to 111. Avoiding nephrotoxic agents. He is still patiently waiting for placement. Vitals/I&O/Wt Last Vital Signs Temp 97.6 F 10/13/25 07:36 Pulse 60 10/13/25 11:08 Resp 26 H 10/13/25 11:08 BP 104/54 10/13/25 11:08 Pulse Ox 94 10/13/25 11:08 O2 Del Method Heated High Flow 10/13/25 04:00 O2 Flow Rate 50 10/13/25 09:34 FiO2 60 10/13/25 09:34 10/12/25 10/13/25 10/13/25 22:59 06:59 14:59 Intake Total 240 / 720 240 / 240 Output Total 100 / 100 100 / 100 Balance 240 / 720 -100 / 620 140 / 140 Weight last 48 hrs Weight 115.076 kg Physical Exam Const: GENERAL APPEARANCE: cooperative and ill appearing HENMT: COMMON NORMALS: normocephalic HEAD & SCALP: normocephalic Lymph: LYMPHATIC: no lymphadenopathy noted Chest: COMMONS NORMALS: normal inspection of the chest Resp: EFFORT & INSPECTION: Yes other (Increased respiratory effort) Cardio: COMMON NORMALS: regular rate RATE: regular rate GI: COMMON NORMALS: Normal to inspection, nondistended, normoactive bowel sounds present and non-tender : COMMON NORMALS: Yes no CVA tenderness BLADDER/KIDNEY EXAM: Yes no CVA tenderness Back/Pelvis: COMMON NORMALS: no CVA tenderness Extremity: GENERAL: Yes edema Psych: COMMON NORMALS: mental status grossly normal and Normal thought process present THOUGHT PROCESS: Normal thought process present Skin: GENERAL SKIN EXAM: dry skin, ecchymosis and scars TRAUMA: abrasion and laceration WOUNDS: Yes wounds noted Data 10/13/25 02:35 10/13/25 02:35 A&P Assessment and plan 1. Acute respiratory failure with hypoxia: O2 saturation 93% on high flow, initial RR 20?26 Patient normally does not wear home oxygen but is now requiring high flow at 55% WBC 14.55, T97.8 ABG pH 7.47, pCO2 40.9, PO2 48.1, HCO3 29.6 Lactic 6.4> 4.2, monitoring COVID/flu/RSV negative CXR; Extensive bilateral pulmonary abnormalities including areas of nodularity, airspace and ground-glass opacity. Small right and minimal left pleural reaction. Increased cardiac silhouette. Possible contributing factors to above appearance include infectious/inflammatory pathology, fluid overload, metastatic disease and other possibilities. In absence of prior exams, CT could be performed further assessment if clinically warranted, see full results. Chest CT pending Pulse oximetry Supplemental O2 to keep saturations greater than 92% VBG monitoring 2. Fall, initial encounter: Denies injury or loss of consciousness Wounds of various healing stages, on this encounter patient was down for approximately 2 days Coccyx wound, wound care CK 589 Fall risk precautions PT/OT prior to discharge Assessment of home conditions with family Case management Ambulates with a walker at times Placement considerations 3. Diastolic heart failure: With CAD and HLD Recent inpatient stay at [facility] per family, 5 to 6 L of fluid off Monitoring hypotension 90s?100s systolic In the setting of elevated BNP 02598, trend Continue home Lasix, Bumex Monitor fluid status in the setting of soft blood pressures I&O Fluid restriction [facility]s [facility] 4. Atrial fibrillation: Reports on home Eliquis Easily bruises, in setting of fall falls considerations EKG Telemetry 5. ABIGAIL (acute kidney injury): BUN 80 > 101, creatinine 3.2 > 3.6 GFR 19.3 > 16.2 Avoid nephrotoxic agents Intake and output Dark urine, urinalysis with reflex to culture Rocephin Floranex 6. Wounds and injuries: Patient has keratosis and psoriasis at baseline Followed by [facility] dermatology New wounds secondary to falls and various healing stages Mepilex to coccyx Wound care 7. Hypothyroidism: Continue home levothyroxine Repeat TSH pending PDMP PDMP Reviewed: Not Reviewed Attestations Medical Necessity Statement*: Patient expected to cross over 2 midnights to manage shortness of breath, weakness, and lab abnormalities including lactic of 6.4 > 3.2. Diagnoses Acute respiratory failure with hypoxia J96.01 Fall, initial encounter W19.XXXA Encounter type: initial encounter Diastolic heart failure I50.30 Atrial fibrillation I48.91 ABIGAIL (acute kidney injury) N17.9 Wounds and injuries T14.90XA Hypothyroidism E03.9
[2025-10-13] MEDS: cefTRIAXone 1,000 mg SDV 1000 MG IVP (13:00)
[2025-10-13 14:01] LABS: NT Pro B Type Natriuretic Pept 16873 pg/mL (0-125)
[2025-10-13 19:46] LABS: Base Excess VBG 11.6 mmol/L (-3.0-3.0); Blood Gas Allen Test Pos; Blood Gas Operator Identificat gerca; Blood Gas Sample Type Venous; HCO3 VBG 36.3 mmol/L (24-28); PCO2 VBG 47.5 mmHg (41-51); PO2 VBG 60.2 mmHg (25-40); Venous Blood Gas Hematocrit 31.9 % (42-52); pH VBG 7.49 (7.32-7.42)
[2025-10-13 19:47] LABS: Blood Gas LPM 45.0 %
[2025-10-13] MEDS: pantoprazole 40 mg SDV IVP (19:59)
[2025-10-13 23:34] LABS: Glucose Urine UA Negative (Normal); Nitrate Urine Negative (Negative); Specific Gravity, Urine 1.014 (1.005-1.030)
[2025-10-13 23:38] LABS: Add Urine Microscopic? YES
[2025-10-14] VITALS (15 sets, daily range): BP systolic 102–134; BP diastolic 47–77; PULSE 60–79; RESP 15–38; TEMP 36.1–36.5; O2SAT 90–99; BMI 36.3
[2025-10-14] MEDS: lactobacillus 1 Tablet 1 TAB PO ×2 (04:35→22:12)
[2025-10-14 05:04] LABS: Hematocrit 31.1 % (37-53); Hemoglobin 10.10 g/dL (11.27-16.99); Mean Corpuscular HGB Conc 32.5 g/dL (30-55); Mean Corpuscular Hemoglobin 31.8 pg (27-33); Mean Corpuscular Volume 97.8 fl (82-101); Nucleated Red Blood Cells % 0.2 %; Platelet Count 103 10^3/cmm (157-399); Red Blood Count 3.18 10^6/uL (3.85-5.65); White Blood Count 12.42 10^3/uL (3.29-11.43)
[2025-10-14 05:25] LABS: Alanine Aminotransferase 26 U/L (0-41); Albumin Level 3.0 g/dL (3.5-5.2); Alkaline Phosphatase 79 U/L (40-130); Anion Gap 18.1 (5-19); Aspartate Amino Transferase 54 U/L (0-40); Calcium 9.0 mg/dL (8.5-10.5); Carbon Dioxide 32 mmol/L (22-29); Chloride 95 mmol/L (98-107); Globulin 2.6 g/dL (1.3-4.6); Glucose 127 mg/dL (65-115); Magnesium 2.7 mg/dL (1.7-2.3); Potassium 4.1 mmol/L (3.5-5.1); Sodium 141 mmol/L (136-145); Total Protein 5.6 g/dL (6.6-8.7)
[2025-10-14 05:31] LABS: Lactate (Lactic Acid level) 1.3 mmol/L (0.5-2.2)
[2025-10-14 05:39] LABS: Osmolality Calculated 335 mOsm/kg (285-295)
[2025-10-14 05:41] LABS: Blood Urea Nitrogen 128 mg/dL (8-23)
[2025-10-14 06:06] LABS: NT Pro B Type Natriuretic Pept 12456 pg/mL (0-125)
--- NOTE | 2025-10-14 10:30 | P.PN_ITS ---
Documented by User: DARLIN Sharma, RUBBER AND POUNDER 10/14/25 12:18 Subjective 2 Subjective: Ryan Nicholas is a 70 year old male with prior medical history of HTN, HLD, CAD, RI, CABG, psoriasis, lymphedema, nicotine dependence, keratosis, hypothyroidism, heart failure, and atrial fibrillation presenting with complaints of weakness.? Patient reports that he has had recent weakness, shortness of breath, and cough.? Patient has extensive history with a heart failure clinic in [facility] including pacemaker placement. He has had episodes of fluid overload requiring hospitalization, with a recent stay at [facility] where he had approximately 5 to 6 L removed. Exact dates are unknown and patient is unable to tell us exactly when. Two nights ago in the 0300 hour, patient fell in the bathtub and was too weak to get up. He was down for 2 days until his daughter did a welfare check on him and first responders found him down. EMS was called and he was transported to [facility] ED for further assessment. Of note, patient has multiple bruises all over and visible injury to his right kapoor. He endorses a decrease in mobility, difficulty walking, bilateral leg swelling, incontinence, and a wound to his coccyx. At baseline he does not wear oxygen but he is now requiring high flow at 55. Patient lives alone and has pet cats. His 2 daughters, Gilda and Marii are very concerned about his living status, as his home is not in safe condition. They advised that the house has holes in the floors and peres and has possibly been formally condemned. EMS was not able to bring rolling lazara into the home s/t leonel safety concerns. At discharge, family would like Case Management to help them seek safe placement. Patient is A&Ox4, of sound mind but prefers living in his current home as it has running water . Patient does not shower frequently secondary to his weakness. Infection and fall risk. He will need assistance at discharge. In the ED, BP 101/49, HR 62, RR 24, T93.2, O2 sat 97% on heated high flow.? WBC 14.55, Hgb 11.8, PLT 122.? INR 1.84.? ABG pH 7.47, pCO2 40.9, pO2 48.1, HCO3 29.6.? NA 137, CL 88. CO2 31. BUN 80, creatinine 3.2.? Glucose 140.? Lactic 6.4.? AST 67, ALT 28, ALP 52.? CK 589.? BNP 64928.? Albumin 3.3. Dark brown cloudy urine. Urinalysis pending.? CXR; Extensive bilateral pulmonary abnormalities including areas of nodularity, airspace and ground-glass opacity. Small right and minimal left pleural reaction. Increased cardiac silhouette. Possible contributing factors to above appearance include infectious/inflammatory pathology, fluid overload, metastatic disease and other possibilities. In absence of prior exams, CT could be performed further assessment if clinically warranted, see full results. 10/11/25: Patient resting. Abnormal CXR head recommendation for CT for further assessment. Imaging today revealed multiple gallstones and 5.3 infrarenal abdominal aneurysm. General surgery consulted then Vascular surgery at [facility] was contacted with help of the transfer center. They advised that they do intervention on AAA at 5.5 cm and will see the patient as a consult with [facility] hospitalists as primary attending. His last vitals relayed to the outside facility; BP 110/56, HR 61, RR 22, 93% on 15 L. WBC 15.53. BUN 85, creatinine 3.5. Albumin 3.3. Lactic trending down 6.8-4 0.6-3.2. BNP [address]. Per Dr. Frazier, patient is being switched off of Lasix and will have Bumex IV 3 times daily to improve fluid status. Patient has UTI. Patient appears jaundiced. New liver panel and ammonia pending. Patient has been accepted at [facility] and is awaiting bed placement; ICU versus stepdown secondary to his multiple comorbidities. 10/12/25: Patient resting in bed. Gian heredia at bedside educated extensively on abdominal aneurysm risks, treatment, inpatient transfer to [facility] for further evaluation. They are aware that there may or may not be intervention depending on assessment at OSH. We discussed conservative treatment. We also discussed all of his other comorbidities and plans for him at discharge for safe placement. Patient has right toe injury from one of his falls but this does not involve the nailbed. At baseline he has some nail deformities. No other complaints. Patient still requiring oxygen. Transferring hopefully tomorrow. 10/13/25: Patient is pending transfer to [facility] X 2 days. AAOX4. Educated on AAA evaluation and transfer. Stable this morning. White count trending in the correct direction. BUN increased from 101 to 111. Avoiding nephrotoxic agents. He is still patiently waiting for placement. 10/14/25: Patient still pending transfer . community service coordinator and CSU has called [facility] and was advised we are still holding for bed and still pending on the list. White count still trending down, now 12.42 but renal labs are trending up, bun 128, creatinine 3.5. Nephrology is being consulted for recommendations. Patient otherwise has no complaints and is hemodynamically stable. Vitals/I&O/Wt Last Vital Signs Temp 97.7 F 10/14/25 08:00 Pulse 64 10/14/25 11:28 Resp 22 H 10/14/25 11:28 BP 134/77 10/14/25 08:00 Pulse Ox 95 10/14/25 11:28 O2 Del Method Heated High Flow 10/14/25 07:35 O2 Flow Rate 45 10/14/25 11:28 FiO2 45 10/14/25 11:28 10/13/25 10/14/25 10/14/25 22:59 06:59 14:59 Intake Total 480 / 1320 240 / 240 Output Total 550 / 650 Balance 480 / 1220 -550 / 670 240 / 240 Weight last 48 hrs Weight 114.809 kg Weight 115.076 kg Physical Exam 2 Const: GENERAL APPEARANCE: cooperative and ill appearing HENMT: COMMON NORMALS: normocephalic HEAD & SCALP: normocephalic Lymph: LYMPHATIC: no lymphadenopathy noted Chest: COMMONS NORMALS: normal inspection of the chest Resp: EFFORT & INSPECTION: Yes other (Increased respiratory effort) Cardio: COMMON NORMALS: regular rate RATE: regular rate GI: COMMON NORMALS: Normal to inspection, nondistended, normoactive bowel sounds present and non-tender : COMMON NORMALS: Yes no CVA tenderness BLADDER/KIDNEY EXAM: Yes no CVA tenderness Back/Pelvis: COMMON NORMALS: no CVA tenderness Extremity: GENERAL: Yes edema Psych: COMMON NORMALS: mental status grossly normal and Normal thought process present THOUGHT PROCESS: Normal thought process present Skin: GENERAL SKIN EXAM: dry skin, ecchymosis and scars TRAUMA: abrasion and laceration WOUNDS: Yes wounds noted Urinary Catheter Management: Edge Latex Free: Cath Placed During This Visit: yes Reason for Continuing Indwelling Catheter: Acute Urinary Retention or Obstruction Urinary Catheter Date of Insertion: 10/13/25 Urinary Catheter Time of Insertion: 17:00 Data 10/15/25 09:33 10/15/25 09:33 A&P Assessment and plan 1. Acute respiratory failure with hypoxia: O2 saturation 93% on high flow, initial RR 20?26 Patient normally does not wear home oxygen but is now requiring high flow at 55% WBC 14.55, T97.8 ABG pH 7.47, pCO2 40.9, PO2 48.1, HCO3 29.6 Lactic 6.4> 4.2, monitoring COVID/flu/RSV negative CXR; Extensive bilateral pulmonary abnormalities including areas of nodularity, airspace and ground-glass opacity. Small right and minimal left pleural reaction. Increased cardiac silhouette. Possible contributing factors to above appearance include infectious/inflammatory pathology, fluid overload, metastatic disease and other possibilities. In absence of prior exams, CT could be performed further assessment if clinically warranted, see full results. Chest CT pending Pulse oximetry Supplemental O2 to keep saturations greater than 92% VBG monitoring 2. Fall, initial encounter: Denies injury or loss of consciousness Wounds of various healing stages, on this encounter patient was down for approximately 2 days Coccyx wound, wound care CK 589 Fall risk precautions PT/OT prior to discharge Assessment of home conditions with family Case management Ambulates with a walker at times Placement considerations 3. Diastolic heart failure: With CAD and HLD Recent inpatient stay at [facility] per family, 5 to 6 L of fluid off Monitoring hypotension 90s?100s systolic In the setting of elevated BNP 98532, trend Continue home Lasix, Bumex Monitor fluid status in the setting of soft blood pressures I&O Fluid restriction [facility] 4. Atrial fibrillation: Reports on home Eliquis Easily bruises, in setting of fall falls considerations EKG Telemetry 5. ABIGAIL (acute kidney injury): BUN 80 > 101 > 111 > 128 Creatinine 3.2 > 3.6> 3.3> 3.5 GFR 19.3 > 16.2 > 17.4 Avoid nephrotoxic agents Intake and output Dark urine, urinalysis with reflex to culture Rocephin Floranex Nephrology consulted, recommendations appreciated 6. Wounds and injuries: Patient has keratosis and psoriasis at baseline Followed by [facility] dermatology New wounds secondary to falls and various healing stages Mepilex to coccyx Wound care 7. Hypothyroidism: Continue home levothyroxine TSH 1.92, WNL PDMP PDMP Reviewed: Not Reviewed Attestations 2 Medical Necessity Statement*: Patient expected to cross over 2 midnights to manage shortness of breath, weakness, and lab abnormalities including lactic of 6.4 > 3.2. Diagnoses Acute respiratory failure with hypoxia J96.01 Fall, initial encounter W19.XXXA Encounter type: initial encounter Diastolic heart failure I50.30 Atrial fibrillation I48.91 ABIGAIL (acute kidney injury) N17.9 Wounds and injuries T14.90XA Hypothyroidism E03.9 Documented by User: Eder Figueroa MD 10/15/25 13:24 Physical Exam 2 Urinary Catheter Management: Edge Latex Free: Cath Placed During This Visit: yes Data 10/15/25 09:33 10/15/25 09:33 A&P Assessment and plan 1. Acute respiratory failure with hypoxia: 2. Fall, initial encounter: 3. Diastolic heart failure: 4. Atrial fibrillation: 5. ABIGAIL (acute kidney injury): 6. Wounds and injuries: 7. Hypothyroidism: PDMP PDMP Reviewed: Not Reviewed Attestations 2 Other Attestations: Patient case reviewed. Agree with findings as outlined. Coding Level of Care Code 15793 Diagnoses Acute respiratory failure with hypoxia J96.01 Fall, initial encounter W19.XXXA Encounter type: initial encounter Diastolic heart failure I50.30 Atrial fibrillation I48.91 ABIGAIL (acute kidney injury) N17.9 Wounds and injuries T14.90XA Hypothyroidism E03.9
--- NOTE | 2025-10-14 13:31 | USR_ITS ---
PROCEDURE INFORMATION: Exam: US Duplex Artery and Vein of the Abdominal and/or Reproductive Organs, Complete Kidneys Exam date and time: 10/14/2025 7:27 PM Age: 70 years old Clinical indication: Abdominal or pelvic symptoms: Acute kidney injury; Additional info: Son , aaa, npo at 1400 TECHNIQUE: Imaging protocol: Real-time duplex ultrasound scan of the arterial and venous flow with color Doppler flow and spectral waveform analysis with image documentation. Complete duplex exam focused on the kidneys. Duplex exam was performed to evaluate for vascular conditions. COMPARISON: CT abdomen pelvis wo con [id number] 10/11/2025 9:18 AM FINDINGS: Right kidney: The right kidney measures 11.6 x 4.5 x 4.4 cm. There is no evidence of obstructive uropathy. Renal calculi are noted. This is better appreciated on the recently acquired CT examination of the abdomen from 10/11/2025. Right renal artery: Peak systolic velocity measurement of 60 cm/sec. Right interlobar/arcuate arteries: Adequate examination was precluded as the patient was unable to follow directions and perform adequate breath holds along with continuously coughing during the evaluation. Right renal vein: Patent. Left kidney: The left kidney measures 11.2 x 6 x 6 cm. Left renal artery: Peak systolic velocity measurement of 77 cm/sec. Left interlobar/arcuate arteries: Adequate examination was not possible as the patient apparently was unable to perform breath holds and was continuously coughing during the evaluation. Left renal vein: Patent. Incidentally noted is the presence of a large right-sided pleural effusion. US/CV renal doppler [id number] IMPRESSION: 1. The kidneys are normal-sized without evidence of obstructive uropathy. 2. The duplex examination of the kidneys is limited. Patency of the vessels is demonstrated. However, the patient could not perform consistent breath holds and was also coughing throughout the evaluation. 2. There is a moderately large right-sided pleural effusion.
[2025-10-14 13:44] LABS: Base Excess VBG 10.7 mmol/L (-3.0-3.0); Blood Gas LPM 45.0 %; Blood Gas Operator Identificat WALCI; Blood Gas Sample Type Venous; HCO3 VBG 35.8 mmol/L (24-28); PCO2 VBG 49.5 mmHg (41-51); PO2 VBG 44.1 mmHg (25-40); Venous Blood Gas Hematocrit 32.1 % (42-52); pH VBG 7.47 (7.32-7.42)
[2025-10-14 14:14] LABS: INR 1.75 (0.8-1.2); Prothrombin Time 21.50 SECONDS (12.1-14.9)
[2025-10-14 14:19] LABS: Ammonia 93 umol/L (16-60)
[2025-10-14 14:21] LABS: Lactate (Lactic Acid level) 2.0 mmol/L (0.5-2.2)
--- NOTE | 2025-10-14 14:24 | PM.CONSULT ---
Providers/Reason For Consult Consulting Physician/Specialty*: kommana /Nephrology Reason for Consult*: ABIGAIL Attending Physician: Diana Morel, MERCHANDISE ADJUSTMENT CLERK, JAVA J2EE SOFTWARE ENGINEER Primary Care Provider: Natasha Nesbitt History of Present Illness History of Present Illness Ryan Nicholas is a 70 year old male Happy to hear that he patient is a 70-year-old male with multiple comorbidities including hypertension, diabetes, coronary artery disease with prior CABG, hypertension, atrial fibrillation, CHF hypothyroidism, liver cirrhosis who presented to the hospital due to generalized weakness and shortness of breath. Patient recently was admitted to [facility] due to normal renal function as well as volume overload and had initially treated with Lasix and followed by Bumex. GFR was reportedly in the 15-17 range during this hospitalization per family. Dialysis was also discussed with patient but was able to manage with diuretics alone at that time. since admission patient was initially placed on Lasix followed by Bumex which is currently on hold due to worsening uremia. CT scan of the abdomen has showed 5.3 cm infrarenal abdominal aortic aneurysm. Patient is currently awaiting for transfer to [facility] for further evaluation of aneurysm. His creatinine on presentation is in the 3 range but his BUN has worsened since admission He is currently on heated high flow and 45% FiO2. Medications/Allergies Home Medications ?Medication ?Instructions ?Recorded ?Confirmed ?Last Taken ?Type risankizumab-rzaa 150 mg/mL 150 mg SUBCUT Q3M 05/22/24 10/10/25 09/29/25 History subcutaneous pen injector (Skyrizi) acetaminophen 500 mg tablet 500 mg PO Q6H PRN Fever Or Pain 10/10/25 10/10/25 10/08/25 History (Tylenol Extra Strength) apixaban 5 mg tablet (Eliquis) 5 mg PO BID 10/10/25 10/10/25 10/10/25 08:00 History bumetanide 1 mg tablet 1 mg PO BID 10/10/25 10/10/25 10/10/25 08:00 History furosemide 80 mg tablet See Rx Instructions .Route .COMPLEX 10/10/25 10/10/25 Unknown History levothyroxine 50 mcg tablet 50 mcg PO DAILY 10/10/25 10/10/25 10/10/25 08:00 History Allergies Allergy/AdvReac Type Severity Reaction Status Date / Time No Known Allergies Allergy Verified 08/07/24 15:03 Current Medications Generic Name Dose Route Start Last Admin Trade Name Freq PRN Reason Stop Dose Admin Albuterol/Ipratropium 3 ml 10/10/25 23:19 10/14/25 07:34 Ipratropium-Albuterol 3 Ml Neb INHALATION 3 ml Q4H PRN Administration SHORTNESS OF BREATH Apixaban 5 mg 10/11/25 05:00 10/14/25 04:35 Apixaban 5 Mg Tablet PO 5 mg BID GIORGIO Administration Ascorbic Acid 500 mg 10/14/25 05:00 10/14/25 04:35 Ascorbic Acid 500 Mg Tablet PO 500 mg DAILY GIORGIO Administration Ceftriaxone Sodium 1,000 mg 10/13/25 11:30 10/13/25 13:00 Ceftriaxone 1,000 Mg Sdv IVP 1,000 mg Q24H GIORGIO Administration Protocol Guaifenesin 600 mg 10/11/25 05:00 10/14/25 04:34 Guaifenesin 600 Mg Tablet PO 600 mg BID GIORGIO Administration Lactobacillus Acidophilus 1 tab 10/11/25 05:00 10/14/25 04:35 Lactobacillus 1 Tablet PO 1 tab BID GIORGIO Administration Levothyroxine Sodium 50 mcg 10/11/25 05:00 10/14/25 04:35 Levothyroxine 50 Mcg Tablet PO 50 mcg DAILY GIORGIO Administration Pantoprazole Sodium 40 mg 10/10/25 19:00 10/13/25 19:59 Pantoprazole 40 Mg Sdv IVP 40 mg Q24H GIORGIO Administration Vitamin D 1,000 unit 10/14/25 05:00 10/14/25 04:34 Cholecalciferol (Vitamin D3) 1,000 Unit Tablet PO 1,000 unit DAILY GIORGIO Administration PFSH Acute PFSH: Medical History (Updated 10/11/25 @ 00:28 by DARLIN Sharma, JAVA J2EE SOFTWARE ENGINEER) CAD (coronary artery disease) Atrial fibrillation Diastolic heart failure Hypercholesterolemia Surgical History S/P CABG (coronary artery bypass graft) Family History Other CAD (coronary artery disease) Social History Smoking and tobacco/nicotine status: former use of tobacco/nicotine Vitals/I&O/Wt Last Vital Signs Temp 97.7 F 10/14/25 08:00 Pulse 61 10/14/25 12:00 Resp 26 H 10/14/25 12:00 BP 107/56 10/14/25 12:00 Pulse Ox 90 10/14/25 12:00 O2 Del Method Heated High Flow 10/14/25 07:35 O2 Flow Rate 45 10/14/25 11:28 FiO2 45 10/14/25 11:28 10/13/25 10/14/25 10/14/25 22:59 06:59 14:59 Intake Total 480 / 1320 654 / 654 Output Total 550 / 650 Balance 480 / 1220 -550 / 670 654 / 654 Weight last 48 hrs Weight 114.809 kg Weight 115.076 kg Physical Exam Narrative: Patient is awake, ill-appearing, no acute distress On 45% FiO2 via heated high flow mask PERRLA S1-S2 regular rate and rhythm Lungs with decreased breath sounds bilaterally Abdomen soft distended Extremities has edema Skin no rash Urinary Catheter Management: Edge Latex Free: Cath Placed During This Visit: yes Reason for Continuing Indwelling Catheter: Acute Urinary Retention or Obstruction Urinary Catheter Date of Insertion: 10/13/25 Urinary Catheter Time of Insertion: 17:00 Data 10/14/25 04:33 10/14/25 04:33 A&P Assessment and plan 1. ABIGAIL (acute kidney injury): Plan: 1. Acute on chronic kidney disease: Baseline creatinine seems to be in the 3-4 range: Patient now has volume overload oliguria discussed with patient family and patient reading - Agree with hold diuretics temporarily to worsening uremia, check urine electrolytes renal Doppler ultrasound, - Case with patient and family regarding possibility needing hemodialysis for volume management but may not tolerate long-term HD due to underlying multiple comorbidities. 2. Acute on chronic respiratory failure, multifactorial 3. History of coronary artery disease, 4. CHF, diuretics are currently on hold, continue restriction 5. Status post fall 6. Infrarenal aortic aneurysm, awaiting transfer to by vascular surgery Patient evaluated using audiovisual cart. Time spent 40 minutes. PDMP PDMP Reviewed: Not Reviewed Consult Attestations Medical Necessity Statement: Per medicine Coding Level of Care Code Acute Code for Chg Fwd Diagnoses ABIGAIL (acute kidney injury) N17.9
[2025-10-14] MEDS: cefTRIAXone 1,000 mg SDV 1000 MG IVP (14:45)
[2025-10-14] MEDS: morphine 4 mg/mL SDV 1 mL 2 MG IVP (14:46)
[2025-10-14] MEDS: albumin 25 G/100 ML BAG 60 G IV (14:47)
[2025-10-14] MEDS: pantoprazole 40 mg SDV IVP (18:18)
[2025-10-14 21:15] LABS: Urine Random Sodium < 10 mmol/L
[2025-10-15] VITALS (11 sets, daily range): BP systolic 97–123; BP diastolic 55–62; PULSE 60–68; RESP 17–30; TEMP 36.5–37; O2SAT 86–95; BMI 36.5
--- NOTE | 2025-10-15 05:15 | PC.NURSE ---
1700 medications delayed due needing to be NPO for renal Doppler.
[2025-10-15] MEDS: lactobacillus 1 Tablet 1 TAB PO ×2 (05:39→16:28)
[2025-10-15 10:17] LABS: Hematocrit 28.8 % (37-53); Hemoglobin 9.70 g/dL (11.27-16.99); Mean Corpuscular HGB Conc 33.7 g/dL (30-55); Mean Corpuscular Hemoglobin 31.8 pg (27-33); Mean Corpuscular Volume 94.4 fl (82-101); Nucleated Red Blood Cells % 0 %; Platelet Count 101 10^3/cmm (157-399); Red Blood Count 3.05 10^6/uL (3.85-5.65); White Blood Count 10.10 10^3/uL (3.29-11.43)
[2025-10-15 10:52] LABS: Alanine Aminotransferase 24 U/L (0-41); Albumin Level 3.3 g/dL (3.5-5.2); Alkaline Phosphatase 59 U/L (40-130); Anion Gap 18.1 (5-19); Aspartate Amino Transferase 46 U/L (0-40); Calcium 9.1 mg/dL (8.5-10.5); Carbon Dioxide 33 mmol/L (22-29); Chloride 95 mmol/L (98-107); Globulin 2.8 g/dL (1.3-4.6); Glucose 101 mg/dL (65-115); Potassium 4.1 mmol/L (3.5-5.1); Sodium 142 mmol/L (136-145); Total Protein 6.1 g/dL (6.6-8.7)
[2025-10-15 11:11] LABS: Osmolality Calculated 337 mOsm/kg (285-295)
[2025-10-15 11:12] LABS: Blood Urea Nitrogen 133 mg/dL (8-23)
[2025-10-15] MEDS: morphine 4 mg/mL SDV 1 mL 2 MG IVP ×2 (11:17→16:27)
[2025-10-15] MEDS: cefTRIAXone 1,000 mg SDV 1000 MG IVP (11:17)
--- NOTE | 2025-10-15 13:06 | PM.PN ---
Vitals/I&O/Wt Last Vital Signs Temp 98.6 F 10/15/25 12:00 Pulse 62 10/15/25 12:00 Resp 29 H 10/15/25 12:00 BP 123/62 10/15/25 12:00 Pulse Ox 93 10/15/25 12:00 O2 Del Method Heated High Flow 10/15/25 08:48 O2 Flow Rate 40 10/15/25 11:06 FiO2 40 10/15/25 11:06 10/14/25 10/15/25 10/15/25 22:59 06:59 14:59 Intake Total 100 / 754 Output Total 750 / 750 550 / 1300 Balance -650 / 4 -550 / -546 Weight last 48 hrs Weight 115.4 kg Weight 114.809 kg Physical Exam Urinary Catheter Management: Edge Latex Free: Cath Placed During This Visit: yes Reason for Continuing Indwelling Catheter: Other Urinary Catheter Date of Insertion: 10/13/25 Urinary Catheter Time of Insertion: 17:00 Data 10/15/25 09:33 10/15/25 09:33 Micro: Microbiology 10/13/25 23:13 Urine Culture - Preliminary Urine,Clean Catch A&P Assessment and plan 1. Acute respiratory failure with hypoxia: Continues to require heated high flow oxygen. Down to 40 L 40% FiO2. Weaning down gradually. Continue to require dialysis. Continue volume removal with dialysis. Noted moderately large right side pleural effusion on review of renal ultrasound. Will benefit from follow-up. No signs of sepsis. Leukocytosis resolved. Chest CT with cardiomegaly, suspected pulmonary hypertension with dilated pulmonary trunk. Small to moderate dependent bilateral pleural effusions. Diffuse pulmonary ground glass opacities and perihilar distribution secondary to alveolar edema or pneumonia, although infectious process not excluded. Cirrhosis. COVID/flu/RSV negative Continue RT follow-up. Discussed with case management. 2. AAA (abdominal aortic aneurysm): Awaiting transfer to [facility] for further vascular assessment management as per discussion with case management and review of prior notes. AAA 5.3 cm. 3. Chronic diastolic heart failure: Acute on chronic diastolic heart failure. Pleural effusions. Hypoxia. Continue hemodialysis as per nephrology. With CAD and HLD Recent inpatient stay at [facility] per family, 5 to 6 L of fluid off Monitoring hypotension 90s?100s systolic In the setting of elevated BNP 36566, trend Continue home Lasix, Bumex Monitor fluid status in the setting of soft blood pressures I&O Fluid restriction Follows [facility] 4. ABIGAIL (acute kidney injury): Appears to be producing urine. Renal numbers otherwise without significant improvement so far. Continues to require dialysis. Consideration of need of continued outpatient dialysis. Discussed with case management. Reviewed nephrology note. Further albumin held. Monitor for risk of fluid overload. Avoid nephrotoxic agents Intake and output Dark urine, urinalysis with reflex to culture. Urine culture reviewed, so far unremarkable. On Rocephin, likely should be able to de-escalate Floranex Nephrology consulted, recommendations appreciated 5. Fall, initial encounter: Denies injury or loss of consciousness Wounds of various healing stages, on this encounter patient was down for approximately 2 days Coccyx wound, wound care CK 589 Fall risk precautions PT/OT prior to discharge Assessment of home conditions with family Case management Ambulates with a walker at times Placement considerations 6. Atrial fibrillation, unspecified type: Reports on home Eliquis Easily bruises, in setting of fall falls considerations EKG Telemetry 7. Wounds and injuries: Patient has keratosis and psoriasis at baseline Followed by [facility] dermatology New wounds secondary to falls and various healing stages Mepilex to coccyx Wound care 8. Hypothyroidism: Continue home levothyroxine TSH 1.92, WNL 9. Cholelithiasis: Incidentally noted 10. Liver cirrhosis: To dentally noted on CT with likely portal venous hypertension. Plan: For lithiasis: PDMP PDMP Reviewed: Not Reviewed Attestations Medical Necessity Statement*: Continue admission for subsequent management of hypoxic respiratory failure, CHF, in the setting of ABIGAIL on CKD, requiring dialysis, and High MDM includes amount and/or complexity of data reviewed/ordered [ resulted lab(s)/test(s), ordered lab(s)/test(s) and other healthcare professional discussion] and described risk of complication, morbidity or mortality of management as documented Diagnoses Acute respiratory failure with hypoxia J96.01 AAA (abdominal aortic aneurysm) I71.40 Chronic diastolic heart failure I50.32 Heart failure chronicity: chronic ABIGAIL (acute kidney injury) N17.9 Fall, initial encounter W19.XXXA Encounter type: initial encounter Atrial fibrillation, unspecified type I48.91 Atrial fibrillation type: unspecified Wounds and injuries T14.90XA Hypothyroidism E03.9 Cholelithiasis K80.20 Liver cirrhosis K74.60
--- NOTE | 2025-10-15 15:17 | P.PN_ITS ---
Subjective 2 Subjective: no new c/o Medications: Reviewed: Yes Vitals/I&O/Wt Last Vital Signs Temp 98.6 F 10/15/25 12:00 Pulse 68 10/15/25 14:00 Resp 29 H 10/15/25 12:00 BP 123/62 10/15/25 12:00 Pulse Ox 93 10/15/25 12:00 O2 Del Method Heated High Flow 10/15/25 08:48 O2 Flow Rate 40 10/15/25 11:06 FiO2 40 10/15/25 11:06 10/15/25 10/15/25 10/15/25 06:59 14:59 22:59 Intake Total 240 / 240 Output Total 550 / 1300 Balance -550 / -546 240 / 240 Weight last 48 hrs Weight 115.4 kg Weight 114.809 kg Physical Exam 2 Narrative: Patient is awake, ill-appearing, no acute distress On 45% FiO2 via heated high flow mask PERRLA S1-S2 regular rate and rhythm Lungs with decreased breath sounds bilaterally Abdomen soft distended Extremities has edema Skin no rash Urinary Catheter Management: Edge Latex Free: Cath Placed During This Visit: yes Reason for Continuing Indwelling Catheter: Other Urinary Catheter Date of Insertion: 10/13/25 Urinary Catheter Time of Insertion: 17:00 Data 10/15/25 09:33 10/15/25 09:33 Micro: Microbiology 10/13/25 23:13 Urine Culture - Preliminary Urine,Clean Catch A&P Assessment and plan 1. ABIGAIL (acute kidney injury): Plan: 1. Acute on chronic kidney disease: Baseline creatinine seems to be in the 3-4 range: Patient now has volume overload oliguria discussed with patient family and patient reading - Agree with hold diuretics temporarily due to worsening uremia,May give gentle IVfs if uremia not improved renal dopple US results reviewed - Case d/w with patient and family regarding possibility needing hemodialysis for volume management but may not tolerate long-term HD due to underlying multiple comorbidities. 2. Acute on chronic respiratory failure, multifactorial 3. History of coronary artery disease, 4. CHF, diuretics are currently on hold, continue fluid restriction 5. Status post fall 6. Infrarenal aortic aneurysm, awaiting transfer to [facility] for vascular surgery Patient evaluated using audiovisual cart. Time spent 40 minutes. PDMP PDMP Reviewed: Not Reviewed Attestations 2 Medical Necessity Statement*: per [facility] Coding Level of Care Code Acute Code for Chg Fwd Diagnoses ABIGAIL (acute kidney injury) N17.9
--- NOTE | 2025-10-15 15:33 | PC.SOCIAL ---
IMM UPDATED IMM dated and initialed, Copy placed in chart and copy given to patient.
[2025-10-15] MEDS: lactulose oral liq 20 gm/30 mL UDC PO (16:28)
[2025-10-15] MEDS: ondansetron 2 mg/ML SDV 2 mL 4 MG IVP (16:35)
[2025-10-15] MEDS: pantoprazole 40 mg SDV IVP (16:36)
--- NOTE | 2025-10-15 18:19 | PM.TDS ---
Transfer Summary Providers Date of Admission: 10/10/25 16:05 Date of Discharge/Transfer: 10/15/25 Attending Provider at Admission: Diony rFazier MD Attending Provider at Transfer: Eder Figueroa Primary Care Provider: Natasha Nesbitt Transfer Plans: Anticipated date of transfer: 10/15/25. Diagnoses at Discharge Discharge Diagnosis 1. ABIGAIL (acute kidney injury): Reason for Visit Reason for Visit FALL/ WEAKNESS Brief History: Ryan Nicholas is a 70 year old male with prior medical history of HTN, HLD, CAD, CO, CABG, psoriasis, lymphedema, nicotine dependence, keratosis, hypothyroidism, heart failure, and atrial fibrillation presenting with complaints of weakness.? Patient reports that he has had recent weakness, shortness of breath, and cough.? Patient has extensive history with a heart failure clinic in [facility] including pacemaker placement. He has had episodes of fluid overload requiring hospitalization, with a recent stay at [facility] where he had approximately 5 to 6 L removed. Exact dates are unknown and patient is unable to tell us exactly when. Two nights ago in the 0300 hour, patient fell in the bathtub and was too weak to get up. He was down for 2 days until his daughter did a welfare check on him and first responders found him down. EMS was called and he was transported to [facility] ED for further assessment. Of note, patient has multiple bruises all over and visible injury to his right kapoor. He endorses a decrease in mobility, difficulty walking, bilateral leg swelling, incontinence, and a wound to his coccyx. At baseline he does not wear oxygen but he is now requiring high flow at 55. Patient lives alone and has pet cats. His 2 daughters, Gilda and Marii are very concerned about his living status, as his home is not in safe condition. They advised that the house has holes in the floors and peres and has possibly been formally condemned. EMS was not able to bring rolling fredirnahun into the home s/t leonel safety concerns. At discharge, family would like Case Management to help them seek safe placement. Patient is A&Ox4, of sound mind but prefers living in his current home as it has running water . Patient does not shower frequently secondary to his weakness. Infection and fall risk. He will need assistance at discharge. In the ED, BP 101/49, HR 62, RR 24, T93.2, O2 sat 97% on heated high flow.? WBC 14.55, Hgb 11.8, PLT 122.? INR 1.84.? ABG pH 7.47, pCO2 40.9, pO2 48.1, HCO3 29.6.? NA 137, CL 88. CO2 31. BUN 80, creatinine 3.2.? Glucose 140.? Lactic 6.4.? AST 67, ALT 28, ALP 52.? CK 589.? BNP 22785.? Albumin 3.3. Dark brown cloudy urine. Urinalysis pending.? CXR; Extensive bilateral pulmonary abnormalities including areas of nodularity, airspace and ground-glass opacity. Small right and minimal left pleural reaction. Increased cardiac silhouette. Possible contributing factors to above appearance include infectious/inflammatory pathology, fluid overload, metastatic disease and other possibilities. In absence of prior exams, CT could be performed further assessment if clinically warranted, see full results. Hospital Course Hospital Course Received treatment for respiratory failure, initially with diuresis for congestive heart failure, but with ABIGAIL, creatinine up to 3.6 last, prior baseline not entirely known but back in 2020 1.6-1.7. Followed by nephrology with consideration of dialysis. Diuretics have been held. Gradually improving respiratory failure, weaning down on oxygen requirement down to 40% FiO2, 40 L. Moderately large right-sided pleural effusion still noted on kidney ultrasound. Ultrasound without obstructive uropathy on ultrasound, but noted to have large calculus at the right UPJ without resultant hydronephrosis. Preliminary urine culture with normal barrington. With incidentally noted findings of suspected liver cirrhosis on CT abdomen pelvis, with hyperammonemia, mild hepatic encephalopathy, started on lactulose. Repeat ammonia requested. Incidentally noted infrarenal AAA 5.3 cm in size. Continued with wound care to coccyx wound after fall. Fall precautions. PT. Ambulates with a walker. Atrial fibrillation remains under control, has been anticoagulated with Eliquis. With some anemia noted during hospitalization, Hemoccult obtained and phos found positive. Blood count with mild downtrend, hemoglobin down to 9.7. Treated with PPI. Requested to hold Eliquis. Transferred to [facility] was arranged for further assessment management, including vascular assessment of the AAA. Physical Exam Narrative: Mildly somnolent. Waking up to voice. Answering appropriately but sluggish and answers. Heated high flow cannula. Const: GENERAL APPEARANCE: cooperative HENMT: COMMON NORMALS: oropharynx normal Neck/C-Spine: COMMON NORMALS: no JVD Resp: COMMON NORMALS: normal respiratory effort and clear to auscultation bilaterally AUSCULTATION: clear to auscultation bilaterally Cardio: COMMON NORMALS: no JVD, regular rhythm, S1 normal heart sound present, S2 normal heart sound present and No murmurs present (Cardio) RHYTHM: regular rhythm HEART SOUNDS: S1 normal heart sound present and S2 normal heart sound present GI: COMMON NORMALS: Normal to inspection, nondistended, normoactive bowel sounds present, Soft to palpation and non-tender PALPATION: Yes Soft to palpation Extremity: COMMON NORMALS: no joint enlargement GENERAL: Yes edema Neuro: COMMON NORMALS: moves all extremities Skin: COMMON NORMALS: no rashes or lesions noted GENERAL SKIN EXAM: no rashes or lesions noted Urinary Catheter Management: Edge Latex Free: Cath Placed During This Visit: yes Reason for Continuing Indwelling Catheter: Other Urinary Catheter Date of Insertion: 10/13/25 Urinary Catheter Time of Insertion: 17:00 TS Data Studies Completed and Pending Pending at discharge Category Date Time Status Ammonia AM LABS Lab 10/16/25 04:00 Ordered Ammonia AM LABS Lab 10/17/25 04:00 Ordered Ammonia AM LABS Lab 10/18/25 04:00 Ordered Complete Blood Count w/Auto AM LABS Lab 10/16/25 04:00 Ordered Comprehensive Metabolic Panel AM LABS Lab 10/16/25 04:00 Ordered Urine Culture Routine Lab 10/13/25 23:13 Results VBG [Venous Blood Gas] Routine Lab 10/13/25 19:39 Results VBG [Venous Blood Gas] Routine Lab 10/14/25 13:39 Results VBG [Venous Blood Gas] Timed Lab 10/11/25 04:30 Results Completed Studies During Hospitalization Category Date Time Status CT abdomen pelvis wo con [id number] Routine Cat Scan 10/11/25 09:[address] chest wo con [id number] Routine Cat Scan 10/11/25 00:16 Completed XR chest 1V portable [id number] Stat Exams 10/10/25 13:59 Completed CV renal doppler [id number] Routine Ultrasound 10/14/25 13:31 Completed Laboratory Last Values WBC 10.10 10^3/uL (3.29-11.43) 10/15/25 09:33 Corrected WBC Cancelled 10/15/25 06:02 RBC 3.05 10^6/uL (3.85-5.65) L 10/15/25 09:33 Hgb 9.70 g/dL (11.27-16.99) L 10/15/25 09:33 Hct 28.8 % (37-53) L 10/15/25 09:33 MCV 94.4 fl (82-101) 10/15/25 09:33 MCH 31.8 pg (27-33) 10/15/25 09:33 MCHC 33.7 g/dL (30-55) 10/15/25 09:33 RDW 23.2 % (12.1-15.1) H 10/15/25 09:33 Plt Count 101 10^3/cmm (157-399) L 10/15/25 09:33 MPV 11.7 fL (7.4-10.4) H 10/15/25 09:33 Gran % Cancelled 10/15/25 06:02 Neut % (Auto) 72.1 % 10/15/25 09:33 Lymph % (Auto) 9.2 % 10/15/25 09:33 [place] % (Auto) 11.9 % 10/15/25 09:33 Eos % (Auto) 3.9 % 10/15/25 09:33 Baso % (Auto) 0.2 % 10/15/25 09:33 Neut # (Auto) 7.29 10^3/uL (1.8-7.7) 10/15/25 09:33 Lymph # (Auto) 0.9 10^3/uL (0.8-4.8) 10/15/25 09:33 [place] # (Auto) 1.2 10^3/uL (0.2-0.9) H 10/15/25 09:33 Eos # (Auto) 0.4 10^3/uL (0.0-0.8) 10/15/25 09:33 Baso # (Auto) 0.0 10^3/uL (0.0-0.1) 10/15/25 09:33 Absolute Gran (auto) Cancelled 10/15/25 06:02 Nucleated RBC % (auto) 0 % 10/15/25 09:33 Nucleated RBCs # 0.0 /100WBC 10/15/25 09:33 PT 21.50 SECONDS (12.1-14.9) H 10/14/25 13:46 INR 1.75 (0.8-1.2) H 10/14/25 13:46 Specimen Type Venous 10/14/25 13:39 Sample Site Not specified 10/12/25 18:50 ABG pH 7.47 (7.35-7.45) H 10/10/25 14:10 ABG pCO2 40.9 mmHg (35-45) 10/10/25 14:10 ABG pO2 48.1 mmHg (80.0-100.0) L 10/10/25 14:10 ABG PO2/FiO2 Ratio 133 10/10/25 14:10 ABG HCO3 29.6 mmol/L (22-26) H 10/10/25 14:10 ABG Base Excess 5.3 mmol/L (-2.0-2.0) H 10/10/25 14:10 Jeevan Test N/a 10/14/25 13:39 VBG pH 7.47 (7.32-7.42) H 10/14/25 13:39 VBG pCO2 49.5 mmHg (41-51) 10/14/25 13:39 VBG pO2 44.1 mmHg (25-40) H 10/14/25 13:39 VBG HCO3 35.8 mmol/L (24-28) H 10/14/25 13:39 VBG Base Excess 10.7 mmol/L (-3.0-3.0) H 10/14/25 13:39 VBG Hematocrit 32.1 % (42-52) L 10/14/25 13:39 Hematocrit 37.6 % (42-52) L 10/10/25 14:10 Hgb O2 Saturation 82.4 % (95-100) L 10/10/25 14:10 Carboxyhemoglobin 2.2 %THgb (0.4-20.1) 10/10/25 14:10 Methemoglobin 0.8 % (0.4-1.5) 10/10/25 14:10 Total Hemoglobin 12.3 g/dL (14-18) L 10/10/25 14:10 O2 Delivery Device Nc 10/14/25 13:39 O2 Liters/Min 45.0 % 10/14/25 13:39 FiO2 40.0 % 10/14/25 13:39 Underground Repairer ID [place] 10/14/25 13:39 Sodium 142 mmol/L (136-145) 10/15/25 09:33 Potassium 4.1 mmol/L (3.5-5.1) 10/15/25 09:33 Chloride 95 mmol/L (98-107) L 10/15/25 09:33 Carbon Dioxide 33 mmol/L (22-29) H 10/15/25 09:33 Anion Gap 18.1 (5-19) 10/15/25 09:33 BUN 133 mg/dL (8-23) H* 10/15/25 09:33 Creatinine 3.1 mg/dL (0.7-1.2) H 10/15/25 09:33 GFR Calculation 20.0 mL/min (90-130) L 10/15/25 09:33 Glucose 101 mg/dL (65-115) 10/15/25 09:33 Estimat Average Glucose 94 10/11/25 04:30 Hemoglobin A1c 4.9 % (4.0-6.0) 10/11/25 04:30 Calculated Osmolality 337 mOsm/kg (285-295) H 10/15/25 09:33 Lactic Acid 3.2 mmol/L (0.5-2.2) H 10/11/25 17:10 Lactic Acid (Sepsis) 3.8 mmol/L (0.5-2.2) H 10/11/25 20:35 Lactate 2.0 mmol/L (0.5-2.2) 10/14/25 13:46 Calcium 9.1 mg/dL (8.5-10.5) 10/15/25 09:33 Phosphorus 4.1 mg/dL (2.5-4.5) 10/13/25 02:35 Magnesium 2.7 mg/dL (1.7-2.3) H 10/14/25 04:33 Total Bilirubin 3.7 mg/dL (0.15-1.2) H 10/15/25 09:33 Direct Bilirubin 1.80 mg/dL (0.00-0.30) H 10/11/25 18:33 AST 46 U/L (0-40) H 10/15/25 09:33 ALT 24 U/L (0-41) 10/15/25 09:33 Alkaline Phosphatase 59 U/L (40-130) 10/15/25 09:33 Ammonia 93 umol/L (16-60) H 10/14/25 13:46 Creatine Kinase 227 U/L (39-308) 10/12/25 02:58 C-Reactive Protein 51.8 mg/L (0.0-4.9) H 10/14/25 04:33 NT-Pro-B Natriuret Pep 46890 pg/mL (0-125) H 10/14/25 04:33 Total Protein 6.1 g/dL (6.6-8.7) L 10/15/25 09:33 Albumin 3.3 g/dL (3.5-5.2) L 10/15/25 09:33 Globulin 2.8 g/dL (1.3-4.6) 10/15/25 09:33 Procalcitonin 0.58 ng/mL (0-0.5) H 10/13/25 02:35 TSH 1.92 uIU/mL (0.27-4.20) 10/11/25 04:30 Free T4 1.25 ng/dL (0.82-1.77) 10/11/25 04:30 Free T3 1.4 PG/ML (2.0-4.4) L 10/11/25 04:30 Urine Color Dark yellow (Yellow) A 10/13/25 23:13 Urine Appearance Clear (CLEAR) 10/13/25 23:13 Urine pH 5.0 (5-7) 10/13/25 23:13 Ur Specific [place] 1.014 (1.005-1.030) 10/13/25 23:13 Urine Protein Negative (Negative) 10/13/25 23:13 Urine Glucose (UA) Negative (Normal) 10/13/25 23:13 Urine Ketones Negative (Negative) 10/13/25 23:13 Urine Blood 3+ (Negative) A 10/13/25 23:13 Urine Nitrate Negative (Negative) 10/13/25 23:13 Urine Bilirubin Negative (Negative) 10/13/25 23:13 Prot Sulfosalicylic Acd Cancelled 10/11/25 08:06 Urine Urobilinogen 1.0 mg/dL (Negative) 10/13/25 23:13 Ur Leukocyte Esterase 1+ (Negative) A 10/13/25 23:13 Urine RBC 21-50 /hpf (0-2) H 10/13/25 23:13 Urine WBC 11-20 /hpf (0-5) H 10/13/25 23:13 Ur Squamous Epith Cells 0-5 /hpf (0-5) 10/13/25 23:13 Ur Transition Epith Cell Cancelled 10/11/25 08:06 Ur Renal Epithelial Cell Cancelled 10/11/25 08:06 Calcium Oxalate Crystal Cancelled 10/11/25 08:06 Uric Acid Crystals Cancelled 10/11/25 08:06 Triple Phos Crystals Cancelled 10/11/25 08:06 Other Crystals Cancelled 10/11/25 08:06 Amorphous Sediment Not Reportable 10/13/25 23:13 Urine Bacteria None seen /hpf (NONE) 10/13/25 23:13 Hyaline Casts 5.77 /lpf 10/13/25 23:13 Fine Granular Casts Cancelled 10/11/25 08:06 Coarse Granular Casts Cancelled 10/11/25 08:06 RBC Casts Cancelled 10/11/25 08:06 Other Casts Cancelled 10/11/25 08:06 Urine Mucus Cancelled 10/11/25 08:06 Urine Trichomonas Cancelled 10/11/25 08:06 Urine Yeast Cancelled 10/11/25 08:06 Urine Sperm Cancelled 10/11/25 08:06 Ur Oval Fat Bodies Cancelled 10/11/25 08:06 Urine Osmolality 426 mOsm/kg (50-1200) 10/11/25 08:33 Ur Random Sodium < 10 mmol/L 10/14/25 20:00 Ur Random Potassium 42 mmol/L 10/11/25 08:33 Ur Random Chloride 11 mmol/L 10/11/25 08:33 Urine Creatinine 123 mg/dL (39-259) 10/11/25 08:33 Influenza A (PCR) Negative (Negative) 10/10/25 16:25 Influenza Type B (PCR) Negative (Negative) 10/10/25 16:25 RSV (PCR) Negative (Negative) 10/10/25 16:25 SARS-CoV-2 (PCR) Negative (Negative) 10/10/25 16:25 Radiology Impressions Chest X-Ray 10/10/25 13:59 IMPRESSION: Extensive bilateral pulmonary abnormalities including areas of nodularity, airspace and ground-glass opacity. Small right and minimal left pleural reaction. Increased cardiac silhouette. Possible contributing factors to above appearance include infectious/inflammatory pathology, fluid overload, metastatic disease and other possibilities. In absence of prior exams, CT could be performed further assessment if clinically warranted. Chest CT 10/11/25 00:16 IMPRESSION: 1. Cardiomegaly. 2. Dilated pulmonary artery/pulmonary trunk which can be seen with pulmonary artery hypertension. 3. Small to moderate dependent bilateral pleural effusions. 4. Diffuse bilateral pulmonary ground-glass opacities in a perihilar distribution favoring severe pulmonary alveolar edema over pneumonia, though infectious process is not excluded. 5. Cirrhosis. 6. Cholelithiasis. 7. Retroareolar gynecomastia. Abdomen/Pelvis CT 10/11/25 09:18 IMPRESSION: 1. Small to moderate bilateral pleural effusions with bibasilar pneumonia or edema. 2. Cirrhosis. 3. Cholelithiasis. 4. Subtle peripancreatic fat stranding. Please correlate with laboratory evaluation for possible mild pancreatitis. 5. Bilateral nonobstructing nephrolithiasis. Again there is a large calculus at the right UPJ without resultant hydronephrosis. 6. Infrarenal abdominal aortic aneurysm. 7. Atherosclerotic disease. 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 8. Portal venous hypertension. 9. Trace ascites. Renal Ultrasound 10/14/25 13:31 IMPRESSION: 1. The kidneys are normal-sized without evidence of obstructive uropathy. 2. The duplex examination of the kidneys is limited. Patency of the vessels is demonstrated. However, the patient could not perform consistent breath holds and was also coughing throughout the evaluation. 2. There is a moderately large right-sided pleural effusion. Recent Clincial Data Last Vital Signs Temp 98.6 F 10/15/25 12:00 Pulse 60 10/15/25 16:00 Resp 30 H 10/15/25 16:27 BP 107/55 10/15/25 16:00 Pulse Ox 92 10/15/25 16:00 O2 Del Method Heated High Flow 10/15/25 08:48 O2 Flow Rate 40 10/15/25 16:00 FiO2 40 10/15/25 16:00 Vital Signs Temp Pulse Pulse Pulse Resp Resp Resp 10/15/25 16:27 30 H 10/15/25 16:00 60 24 H 10/15/25 16:00 60 22 H 10/15/25 14:00 68 10/15/25 12:00 98.6 F 62 29 H 10/15/25 11:17 24 H 10/15/25 11:06 62 20 H 10/15/25 08:48 62 18 10/15/25 08:00 62 24 H 10/15/25 08:00 97.7 F 60 17 BP Pulse Ox Pulse Ox Pulse Ox O2 Del Method O2 Flow Rate O2 Flow Rate 10/15/25 16:27 10/15/25 16:00 92 40 10/15/25 16:00 107/55 86 L 10/15/25 14:00 10/15/25 12:00 123/62 93 10/15/25 11:17 10/15/25 11:06 95 10/15/25 08:48 94 Heated High Flow 40 10/15/25 08:00 94 10/15/25 08:00 97/56 94 O2 Flow Rate FiO2 FiO2 FiO2 10/15/25 16:27 10/15/25 16:00 40 10/15/25 16:00 10/15/25 14:00 10/15/25 12:00 10/15/25 11:17 10/15/25 11:06 40 40 10/15/25 08:48 40 10/15/25 08:00 40 40 10/15/25 08:00 Intake & Output/Weight 10/13/25 10/14/25 10/15/25 10/16/25 06:59 06:59 06:59 06:59 Intake Total 720 / 720 1320 / 1320 754 / 754 240 / 240 Output Total 100 / 100 650 / 650 1300 / 1300 750 / 750 Balance 620 / 620 670 / 670 -546 / -546 -510 / -510 Weight 115.076 kg 114.809 kg 115.4 kg Vitals Last Vital Signs Temp 98.6 F 10/15/25 12:00 Pulse 60 10/15/25 16:00 Resp 30 H 10/15/25 16:27 BP 107/55 10/15/25 16:00 Pulse Ox 92 10/15/25 16:00 O2 Del Method Heated High Flow 10/15/25 08:48 O2 Flow Rate 40 10/15/25 16:00 FiO2 40 10/15/25 16:00 TS Medications Medications Acetaminophen (Acetaminophen 500 Mg Tablet) 500 mg PO Q6H PRN On Hold: 10/10/25 18:56 PRN Reason: Fever Or Pain Albuterol/Ipratropium (Ipratropium-Albuterol 3 Ml Neb) 3 ml INHALATION Q4H PRN PRN Reason: SHORTNESS OF BREATH Last Admin: 10/15/25 08:46 Dose: 3 ml Apixaban (Apixaban 5 Mg Tablet) 5 mg PO BID [facility] Last Admin: 10/15/25 16:28 Dose: 5 mg Ascorbic Acid (Ascorbic Acid 500 Mg Tablet) 500 mg PO DAILY [facility] Last Admin: 10/15/25 05:39 Dose: 500 mg Ceftriaxone Sodium (Ceftriaxone 1,000 Mg Sdv) 1,000 mg IVP Q24H [facility]; Protocol Last Admin: 10/15/25 11:17 Dose: 1,000 mg Guaifenesin (Guaifenesin 600 Mg Tablet) 600 mg PO BID [facility] Last Admin: 10/15/25 16:28 Dose: 600 mg Guaifenesin (Guaifenesin 100 Mg/5 Ml Udc 10 Ml) 400 mg PO Q4H PRN PRN Reason: COUGH Lactobacillus Acidophilus (Lactobacillus 1 Tablet) 1 tab PO BID [facility] Last Admin: 10/15/25 16:28 Dose: 1 tab Lactulose (Lactulose Oral Liq 20 Gm/30 Ml Udc) 20 gm PO Q6H [facility] Last Admin: 10/15/25 16:28 Dose: 20 gm Levothyroxine Sodium (Levothyroxine 50 Mcg Tablet) 50 mcg PO DAILY [facility] Last Admin: 10/15/25 05:39 Dose: 50 mcg Morphine Sulfate (Morphine 4 Mg/Ml Sdv 1 Ml) 2 mg IVP Q6H PRN PRN Reason: SEVERE PAIN Last Admin: 10/15/25 16:27 Dose: 2 mg Ondansetron HCl (Ondansetron 2 Mg/Ml Sdv 2 Ml) 4 mg IVP Q8H PRN PRN Reason: vomiting, or N/V if npo Last Admin: 10/15/25 16:35 Dose: 4 mg Pantoprazole Sodium (Pantoprazole 40 Mg Sdv) 40 mg IVP Q24H [facility] Last Admin: 10/15/25 16:36 Dose: 40 mg Phenol (Phenol Oral [place] 177 Ml) 3 spray MUCOUS MEM Q2H PRN PRN Reason: SORE THROAT Vitamin D (Cholecalciferol (Vitamin D3) 1,000 Unit Tablet) 1,000 unit PO DAILY [facility] Last Admin: 10/15/25 05:39 Dose: 1,000 unit Discontinued Medications Albuterol/Ipratropium (Ipratropium-Albuterol 3 Ml Neb) 3 ml INHALATION ONCE ONE Stop: 10/10/25 14:28 Last Admin: 10/10/25 14:45 Dose: 3 ml Bumetanide (Bumetanide 1 Mg Tablet) 1 mg PO BID [facility] Last Admin: 10/11/25 16:30 Dose: Not Given Bumetanide (Bumetanide 0.25 Mg/Ml Sdv 10 Ml) 2 mg IVP TID [facility] Stop: 10/13/25 20:59 Last Admin: 10/13/25 13:45 Dose: Not Given Ceftriaxone Sodium (Ceftriaxone 1,000 Mg Sdv) 1,000 mg IVP ONCE ONE; Protocol Stop: 10/10/25 14:21 Last Admin: 10/10/25 15:30 Dose: 1,000 mg Furosemide (Furosemide 40 Mg Tablet) 80 mg PO DAILY [facility] Last Admin: 10/11/25 05:07 Dose: Not Given Furosemide (Furosemide 10 Mg/Ml Sdv 4ml) 40 mg IVP ONCE ONE Stop: 10/11/25 15:09 Last Admin: 10/11/25 16:29 Dose: 40 mg Azithromycin 500 mg/ Sodium (Chloride) 250 mls @ 250 mls/hr IV ONCE ONE; Protocol Stop: 10/10/25 15:19 Last Infusion: 10/10/25 16:35 Dose: Infused Sodium Chloride (Sodium Chloride 0.9%) 250 mls @ 250 mls/hr IV ONCE ONE Stop: 10/10/25 15:59 Last Infusion: 10/10/25 17:17 Dose: Infused Sodium Chloride (Sodium Chloride 0.9%) 500 mls @ 999 mls/hr IV .Q31M ONE Stop: 10/10/25 16:46 Last Infusion: 10/10/25 18:54 Dose: Infused Albumin Human (Albumin) 25 g in 100 mls @ 60 mls/hr IV ONCE ONE Stop: 10/14/25 15:11 Last Infusion: 10/14/25 16:48 Dose: Infused Methylprednisolone Sodium Succinate (Methylprednisolone Sod Succ 125 Mg/2 Ml Inj) 125 mg IVP ONCE ONE Stop: 10/10/25 14:28 Last Admin: 10/10/25 15:30 Dose: 125 mg Morphine Sulfate (Morphine 4 Mg/Ml Sdv 1 Ml) 4 mg IVP ONCE ONE Stop: 10/13/25 13:22 Last Admin: 10/13/25 19:15 Dose: Not Given Allergies No Known Allergies Allergy (Verified 05/22/24 15:03) Home Medications risankizumab-rzaa 150 mg/mL subcutaneous pen injector (Skyrizi) 150 mg SUBCUT Q3M 05/22/24 [History Confirmed 10/10/25] acetaminophen 500 mg tablet (Tylenol Extra Strength) 500 mg PO Q6H PRN Fever Or Pain 10/10/25 [History Confirmed 10/10/25] apixaban 5 mg tablet (Eliquis) 5 mg PO BID 10/10/25 [History Confirmed 10/10/25] bumetanide 1 mg tablet 1 mg PO BID 10/10/25 [History Confirmed 10/10/25] furosemide 80 mg tablet See Rx Instructions .Route .COMPLEX 10/10/25 [History Confirmed 10/10/25] levothyroxine 50 mcg tablet 50 mcg PO DAILY 10/10/25 [History Confirmed 10/10/25] Discharge Plan Discharge Patient Disposition: Xfer Short-Term Hosp Condition: Stable Prescriptions: No Action Skyrizi 150 mg/mL pen injector 150 mg SUBCUT Q3M furosemide 80 mg tablet See Rx Instructions .ROUTE .COMPLEX Patient Comments: Dori states he was told to stop taking Rx Instructions: TAKE 1 TABLET BY MOUTH TWICE DAILY FOR 1 WEEK, THEN BACK TO 1 TABLET DAILY levothyroxine 50 mcg tablet 50 mcg PO DAILY bumetanide 1 mg tablet 1 mg PO BID Eliquis 5 mg tablet 5 mg PO BID acetaminophen [Tylenol Extra Strength] 500 mg Tablet 500 mg PO Q6H PRN (Reason: Fever Or Pain) Referrals: Natasha Nesbitt [Primary Care Provider, Family Practice] Patient Instructions: Opioid Safety, Patient Portal & Tamika Instructions Transfer Attestations Time Spent in Transfer Care: greater than 30 min Quality Metrics Clinical Quality Measures [ No reported AMI, CVA or VTE this stay] Coding Level of Care Code 18308 Total time (in minutes) for Discharge: 55 Diagnoses ABIGAIL (acute kidney injury) N17.9
== END 2025-10-15 19:00 | disposition short-term general hospital (02) | DRG 682 ==
LOC: ER 16:38 → CSU 18:02
PROVIDERS: Clinical Nurse Specialist Acute Care; Family Medicine; Hospitalist; Admitting Provider Internal Medicine; Emergency Provider Emergency Medicine; PCP Registered Nurse; Visit Provider Internal Medicine
DX: N17.9 Acute kidney failure, unspecified (principal); I50.33 Acute on chronic diastolic (congestive) heart failure; J18.9 Pneumonia, unspecified organism; J96.01 Acute respiratory failure with hypoxia; I13.0 Hypertensive heart and chronic kidney disease with heart failure and stage 1 through stage 4 chronic kidney disease, or unspecified chronic kidney disease; N39.0 Urinary tract infection, site not specified; Z59.19 Other inadequate housing; I11.0 Hypertensive heart disease with heart failure; E03.9 Hypothyroidism, unspecified; I25.10 Atherosclerotic heart disease of native coronary artery without angina pectoris; S99.921A Unspecified injury of right foot, initial encounter; S89.91XA Unspecified injury of right lower leg, initial encounter; T14.8XXA Other injury of unspecified body region, initial encounter; R32 Unspecified urinary incontinence; I71.43 Infrarenal abdominal aortic aneurysm, without rupture; K80.20 Calculus of gallbladder without cholecystitis without obstruction; L57.0 Actinic keratosis; L40.9 Psoriasis, unspecified; D63.1 Anemia in chronic kidney disease; K74.60 Unspecified cirrhosis of liver; E78.00 Pure hypercholesterolemia, unspecified; N18.9 Chronic kidney disease, unspecified; I48.91 Unspecified atrial fibrillation; Z91.81 History of falling; Z79.01 Long term (current) use of anticoagulants; Z79.890 Hormone replacement therapy; Z79.899 Other long term (current) drug therapy; Z95.1 Presence of aortocoronary bypass graft; Z87.891 Personal history of nicotine dependence; I25.2 Old myocardial infarction; Z11.52 Encounter for screening for COVID-19; Z95.0 Presence of cardiac pacemaker; Z75.1 Person awaiting admission to adequate facility elsewhere; W18.2XXA Fall in (into) shower or empty bathtub, initial encounter
CPT/HCPCS: 36415; 36600; 51702; 71045; 71250; 74176; 80048; 80053; 80076; 81001; 82140; 82274; 82436; 82550; 82570; 82803; 82805; 83036; 83605; 83735; 83880; 83935; 84100; 84133; 84145; 84300; 84439; 84443; 84481; 85025; 85610; 86140; 87040; 87086; 87637; 93005; 93975; 94640; 96365; 96375; 99285; 99291; J0456; J0696; J1938; J2270; J2405; J2470; J2919; J3490; J7040; J7050; J9999; P9046; Q3014